=== PATIENT | female | born 1970 | race Caucasian/White ===

== ENCOUNTER 2020-09-24 14:16 | Outpatient (CLI) | payer OTHER, SELFPAY ==
--- NOTE | ~2020-09-24 | US_ITS ---
EXAMINATION: US thyroid DATE: 09/24/2020 14:44 INDICATION: Dysphagia. TECHNIQUE: Multiple ultrasound images of the thyroid were obtained. COMPARISON: CT cervical spine 01/17/2016 FINDINGS: The right thyroid lobe measures 5.9 x 2.6 x 2.2 cm. The left thyroid lobe is absent . In the inferio r right thyroid lobe, there is a 2.1 cm predominantly solid, hypoechoic, jtkxb-rmap-liyi nodule with ill-defined margin without echogenic foci (TI-RADS TR4). IMPRESSION: 1. Right thyroid nodule, stable from 01/17/2016, likely benign. Reviewed, dictated and finalized at location A. ATION OFFICER
== END 2020-09-24 14:17 | disposition home or self-care (01) ==
PROVIDERS: PCP Nurse Practitioner Family; Visit Provider Otolaryngology
DX: R13.10 Dysphagia, unspecified (principal)
CPT/HCPCS: 76536

== ENCOUNTER 2021-01-10 18:03 | Emergency (ER) | payer OTHER, SELFPAY ==
--- NOTE | 2021-01-10 18:48 | ED_ITS ---
HPI - General Adult General Chief complaint: Extremity Injury, Lower Stated complaint: Left leg complaint Time Seen by Provider: 01/10/21 18:17 Related Data Home Medications Medication Instructions Recorded Confirmed sertraline 100 mg tablet 100 mg PO DAILY 09/20/20 Allergies Allergy/AdvReac Type Severity Reaction Status Date / Time latex Allergy Unknown ITCHING Verified 09/20/20 13:53 WITH GLOVES adhesive AdvReac Unknown ITCHING Verified 09/20/20 13:53 PMFSH Family History Family History (Updated 09/20/20 @ 13:48 by Radha Cao [facility]) Mother Asthma Father Heart disease Sibling ALS (amyotrophic lateral sclerosis) Grandparent Cancer Diabetes mellitus Grandparent Diabetes mellitus Cancer Social History Social History (Updated 09/20/20 @ 13:49 by Radha Cao [facility]) Smoking status: Never smoker Second hand tobacco smoke exposure: No Alcohol intake: never Substance use: never Substance use type: does not use Medical Decision Making MDM Narrative Medical decision making narrative: Patient was not evaluated by nurse practitioner. Patient left at triage desk prior to OIL LEASE OPERATOR evaluation. Please see nursing documentation. Discharge Plan Discharge Prescriptions: No Action sertraline 100 mg tablet 100 mg PO DAILY RF: 0 Follow-up/Referrals: Steiner,Priyanka Burk APN [Primary Care Provider] -
== END 2021-01-10 18:17 | disposition left against medical advice (07) ==
PROVIDERS: Emergency Provider Nurse Practitioner Family; PCP Nurse Practitioner Family
DX: Z53.21 Procedure and treatment not carried out due to patient leaving prior to being seen by health care provider (principal)
CPT/HCPCS: 99199

== ENCOUNTER 2021-09-27 01:11 | Emergency (ER) | payer OTHER, SELFPAY ==
--- NOTE | 2021-09-27 01:32 | ED.ALLEREA ---
HPI - Allergic Reaction General Chief complaint: Allergic Reaction Stated complaint: ALLERGIC REACTION Time Seen by Provider: 09/27/21 01:32 Source: patient Mode of arrival: ambulatory Limitations: no limitations History of Present Illness HPI narrative: this is a 51-year-old female who presents with some urticarial lesions on her lower extremities and itching that started earlier this evening the patient not sure what started this allergic reaction except for using her mother's shower gel and recently started on aspirin after she has status post left knee replacement surgery. Otherwise there is no shortness of breath no audible wheezing no nausea vomiting or abdominal pain. MD complaint: allergic reaction and hives Onset (ago): hour(s) Exposure: unknown Symptoms: rash and itching Severity: moderate Treatment prior to arrival: topical medicine Related Data Home Medications Medication Instructions Recorded Confirmed sertraline 100 mg tablet 100 mg PO DAILY 09/20/20 Allergies Allergy/AdvReac Type Severity Reaction Status Date / Time latex Allergy Unknown ITCHING Verified 09/20/20 13:53 WITH GLOVES adhesive AdvReac Unknown ITCHING Verified 09/20/20 13:53 Review of Systems Review of Systems: All systems reviewed & are unremarkable except as noted in HPI and below PMFSH Past Medical History Medical History Dysphagia Family History Family History Mother Asthma Father Heart disease Sibling ALS (amyotrophic lateral sclerosis) Grandparent Cancer Diabetes mellitus Grandparent Diabetes mellitus Cancer Social History Social History Smoking status: Never smoker Second hand tobacco smoke exposure: No Alcohol intake: never Substance use: never Substance use type: does not use Exam Const: General: no acute distress Orientation/consciousness: patient oriented x3 HENMT: Head: normal to inspection Eyes: Conjunctivae: conjunctivae normal Pupils: Equal, round and reactive pupils present Neck: Neck: normal visual inspection, no lymphadenopathy and no meningeal signs Chest: Chest palpation & inspection: normal inspection of the chest Resp: Effort & Inspection: normal respiratory effort Cardio: Rate: regular rate and tachycardic GI: GI Palp: Yes Soft to palpation : General: Yes no CVA tenderness Urinary Catheter: Urinary Catheter: patent and draining Back/Spine/Pelvis: Back: no CVA tenderness Skin: General skin exam: normal color Other: Urticarial lesions are welts located on lower extremities Neuro: General: patient oriented x3, moves all extremities, no meningeal signs and no focal motor deficits Extrem: General: normal to inspection and no pedal edema Psych: Affect: normal affect Attitude: cooperative Course Course Emergency Course: patient received a dose of p.o. Benadryl and IM Depo-Medrol and which helped relieve her itching and improved her urticaria. Critical Care Time Critical Care Time Critical Care Time: No Discharge Plan Discharge Clinical Impression: Urticaria Allergic reaction Qualifiers: Encounter type: initial encounter Qualified Code(s): T78.40XA - Allergy, unspecified, initial encounter Patient Disposition: Home, Self-Care Condition: Stable Instructions: Antibiotic Form, Urticaria (ED) Additional Instructions: Take medicine as prescribed and return to nearest emergency department if symptoms of severe shortness of breath should develop. Stop aspirin and call primary care physician / orthopedic doctor if symptoms persist or worsen. Prescriptions: New prednisone 20 mg tablet 20 mg PO DAILY 5 Days Qty: 5 RF: 0 diphenhydramine HCl [Benadryl] 25 mg capsule 25 mg PO Q6H PRN (Reason: allergic reaction) Qty: 20 RF: 0 No Action sertraline 100 mg tabl
[2021-09-27 01:33] VITALS: BP 148/92; PULSE 124; RESP 22; TEMP 36.7; O2SAT 99
[2021-09-27] MEDS: diphenhydrAMINE HCl CAP 25 MG CAPSULE PO (02:08)
[2021-09-27] MEDS: methylPREDNISolone ACETATE 40 MG/ML VIAL 80 MG IM (02:11)
--- NOTE | 2021-09-27 03:00 | PC.NURSE ---
Pt reports itching resolved Hives dissipating, however Pt continues Tachy and restless. Pt states her Lt knee cont to give her pain. Pain R/T HX Lt total knee surgery. Noted dressing CDI. Butterfly steri strips in place 0 drainage or Redness. ANNY donovan and advised Pt cont Tachy HR. EKG ordered.
--- NOTE | 2021-09-27 03:49 | PC.NURSE ---
Pt reevaluated by ANNY Loco. Pt at this time after this RN Notified the ANNY Loco, obtained orders and pulled medication and fluids for pain to administer....Pt refused. Pt Advised Anny Loco and myself of the following, This is not what I came here for! I came here for hives not pain meds! Pt began getting up off stretcher and getting dressed at this time ANNY Loco advised me Pt was signing out AMA. A hospital approved AMA form was obtained filled out with the proper Identifiers and submitted with a full explination to Pt of the consequenses of signing out against medical advise. pt signed and continued her exit from the Emergency Dept.
[2021-09-27 03:54] VITALS: BP 134/72; PULSE 134; RESP 22; TEMP 36.4; O2SAT 97
== END 2021-09-27 04:00 | disposition left against medical advice (07) ==
PROVIDERS: Emergency Provider Emergency Medicine; PCP Nurse Practitioner Family
DX: L50.9 Urticaria, unspecified (principal); T78.40XA Allergy, unspecified, initial encounter
CPT/HCPCS: 96372; 99283; A9270; J1030

== ENCOUNTER 2023-02-17 23:27 | Emergency (ER) | payer OTHER, SELFPAY ==
[2023-02-17 23:32] VITALS: BP 157/100; PULSE 122; RESP 20; TEMP 37.3; O2SAT 100
[2023-02-17] MEDS: TETANUS,DIPHTHERIA,AC PERTUSSIS ADULT 0.5 ML (ADACEL) IM (23:51)
[2023-02-17] MEDS: KETOROLAC (*BKC) 60 MG/2 ML VIAL IM (23:54)
--- NOTE | 2023-02-17 23:58 | ED.WOUNDLAC ---
HPI - Wound/Laceration General Chief Complaint: Wound/Laceration Stated Complaint: Lac Source: patient Mode of arrival: ambulatory Limitations: no limitations History of Present Illness HPI narrative: this is a 52-year-old female who presents with laceration 4 distinct areas on her left upper arm S1 and 0.5cm in length 1 on her left wrist 1cm in length 1 on her thenar region 1/2cm in length and on her palm 2.5cm in length, occurred earlier this evening after she was walking around with a mole in her hand and she tripped and fell causing lacerations from broken [place] that cut into her arm and hand, otherwise no other injuries complaining of pain which he rates about a 6/10 is not up-to-date with her tetanus. Has good range of motion in all fingers with no numbness or tingling. Onset (ago): hour(s) Extremity Location: Left: arm ( laceration 1.5cm), wrist ( laceration 1.5cm) and hand ( laceration to an absent in) Place: home Patient tetanus UTD: No Context: accidental Associated symptoms: none Related Data Home Medications Medication Instructions Recorded Confirmed Cecon 500 mg BYMOUTH DAILY 09/27/21 09/27/21 Senexon-S 50 mg BYMOUTH DAILY 09/27/21 09/27/21 aspirin 325 mg BYMOUTH DAILY 09/27/21 09/27/21 Allergies Allergy/AdvReac Type Severity Reaction Status Date / Time latex Allergy Unknown ITCHING Verified 02/06/22 08:25 WITH GLOVES adhesive AdvReac Unknown ITCHING Verified 02/06/22 08:25 Review of Systems Review of Systems: All systems reviewed & are unremarkable except as noted in HPI and below PMFSH Past Medical History Medical History Dysphagia Family History Family History Mother Asthma Father Heart disease Sibling ALS (amyotrophic lateral sclerosis) Grandparent Cancer Diabetes mellitus Grandparent Diabetes mellitus Cancer Social History Social History Smoking status: Never smoker Second hand tobacco smoke exposure: No Alcohol intake: never Substance use: never Substance use type: does not use Exam Const: General: healthy appearing Nutritional Appearance: well nourished Orientation/consciousness: patient oriented x3 Limitations: no limitations Neck: Neck: normal visual inspection and no lymphadenopathy Chest: Chest palpation & inspection: normal inspection of the chest Resp: Effort & Inspection: normal respiratory effort Auscultation: clear to auscultation bilaterally Cardio: Rate: regular rate Rhythm: regular rhythm GI: GI Palp: Yes Soft to palpation Skin: Wounds: wounds noted Neuro: General: patient oriented x3 Cranial nerves: Yes Nystagmus not present Speech: normal speech Extrem: General: normal to inspection Psych: Mental Status: mental status grossly normal Affect: normal affect Course Course Emergency Course: Lacerations that were cleaned and irrigated, a bleeding and stop with some [place] and [place] done was placed on the 4 distinct laceration areas, patient was updated with her tetanus and given shot of Toradol for pain control. Currently no bleeding no numbness or tingling has good range of motion in her fingers and wrist. Wounds were without any injury to tendons or ligaments. Vital Signs Vital signs: Vital Signs Temperature 37.3 C 02/17/23 23:32 Pulse Rate 122 H 02/17/23 23:32 Respiratory Rate 20 02/17/23 23:32 Blood Pressure 157/100 H 02/17/23 23:32 Pulse Oximetry 100 02/17/23 23:32 Oxygen Delivery Room Air 02/17/23 23:32 Temperature 37.3 C 02/17/23 23:32 Pulse Rate 122 H 02/17/23 23:32 Respiratory Rate 20 02/17/23 23:32 Blood Pressure 157/100 H 02/17/23 23:32 Pulse Oximetry 100 02/17/23 23:32 Oxygen Delivery Room Air 02/17/23 23:32 Procedures Laceration Laceration 1: Date: 02/18/23 Time: 00:03 Sit
[2023-02-18 00:13] VITALS: BP 140/105; PULSE 103; RESP 20; TEMP 36.9; O2SAT 97
== END 2023-02-18 00:15 | disposition home or self-care (01) ==
PROVIDERS: Emergency Provider Emergency Medicine; PCP Nurse Practitioner Family
DX: S41.112A Laceration without foreign body of left upper arm, initial encounter (principal); Z23 Encounter for immunization; W01.0XXA Fall on same level from slipping, tripping and stumbling without subsequent striking against object, initial encounter; Y92.009 Unspecified place in unspecified non-institutional (private) residence as the place of occurrence of the external cause
CPT/HCPCS: 12002; 90471; 90715; 96372; 99283; J1885

== ENCOUNTER 2024-02-29 22:52 | Emergency (ER) | payer OTHER, SELFPAY ==
--- NOTE | ~2024-02-29 | CT_ITS ---
EXAMINATION: CT abdomen pelvis wo con DATE: 02/29/2024 23:49 INDICATION: LEFT FLANK PAIN/HX OF STONES TECHNIQUE: Computed tomography (CT) of the abdomen and pelvis was performed without intravenous contr ast. Automated exposure control and iterative reconstruction technique were employed. The dose-length product was 523.86 mGy-cm. COMPARISON: None. FINDINGS: Lower thorax: Lingular and bibasilar scarring. Mild cardiomegaly. Coronary and aortic valve calcifica tion. Liver: Normal. Biliary/Gallbladder: Gallbladder is normal. No bile duct dilation. Pancreas: No mass or duct dilation. Spleen: Normal. Adrenals:No mass. Kidneys: No suspicious mass, obstructing stone, or hydronephrosis. Punctate nonobstructing left upper pole calcification. GI tract: Sigmoid wall thickening in the pelvis with inflamed adjacent diverticula. Amorphous thicken ing of the adjacent peritoneal reflection along the upper left pelvic sidewall, extending superiorly roughly to the level of the iliac bifurcation. Several adjacent gas bubbles may represent gas trapped within diverticula or small bubbles of local extraluminal gas. Prior gastric surgery. No small or la rge bowel dilation. Normal appendix. Mesentery/Peritoneum: No ascites, mass, or free air. Retroperitoneum: No mass. Pelvis: Absent uterus. Mostly empty urinary bladder with mild wall thickening. Small volume free pelv ic fluid, measuring more dense than simple fluid. Soft Tissues: Soft tissues and body wall unremarkable. Bones: No acute osseous finding. Uncomplicated appearing lumbar fusion hardware. IMPRESSION: Acute complicated sigmoid diverticulitis. Inflammatory changes along the adjacent left lower abdominal and pelvic peritoneal reflection versus phlegmon. Developing abscess not excluded. Hyperdense free pelvic fluid, as can be seen with infected fluid or bowel content. Multiple adjacent gas collections may represent localized microperforation versus gas trapped within adjacent diverticuli. Reviewed, dictated and finalized at location K. IMPRESSION: Acute complicated sigmoid diverticulitis. Inflammatory changes along the adjacent left lower abdominal and pelvic periton eal reflection versus phlegmon. Developing abscess not excluded. Hyperdense free pelvic fluid, as can be seen with infected fluid or bowel fatimah nt. Multiple adjacent gas collections may represent localized microperforation vers us gas trapped within adjacent diverticuli.
[2024-02-29 22:53] VITALS: BP 148/78; PULSE 124; RESP 18; TEMP 37.7; O2SAT 97
--- NOTE | 2024-02-29 22:57 | ED.ABDPAIN ---
HPI - Abdominal Pain General Chief Complaint: Abdominal Pain Stated Complaint: urogenital female Time Seen by Provider: 02/29/24 22:52 Source: patient Mode of arrival: ambulatory Limitations: no limitations History of Present Illness MD elicited complaint: abdominal pain Pertinent past history: kidney stones Onset (ago): hour(s) (this morning) Pain Consistency: constant Location: LLQ Severity: severe Radiation: none Exacerbating factors: nothing Relieving factors: nothing Associated symptoms: denies other symptoms Related Data Patient : No Home Medications Medication Instructions Recorded Confirmed fluoxetine 10 mg capsule 10 mg PO DAILY 02/29/24 02/29/24 hydrochlorothiazide 25 mg tablet 25 mg PO DAILY 02/29/24 02/29/24 Allergies Allergy/AdvReac Type Severity Reaction Status Date / Time latex Allergy Unknown ITCHING Verified 02/06/22 08:25 WITH GLOVES adhesive AdvReac Unknown ITCHING Verified 02/06/22 08:25 Review of Systems Review of Systems: All systems reviewed & are unremarkable except as noted in HPI and below Constitutional: Constitutional: Reports as per HPI, Denies chills and Denies fever(s) Eyes: Eyes: Reports as per HPI ENT: Reports system reviewed and no additional complaints, except as documented Cardiovascular: Cardiovascular: Reports as per HPI and Denies chest pain Respiratory: Respiratory: Reports as per HPI and Denies dyspnea Gastrointestinal: Gastrointestinal: Reports as per HPI, Reports abdominal pain, Denies constipation, Denies diarrhea, Denies nausea and Denies vomiting Genitourinary: Genitourinary: Reports no additional female genitourinary complaints, Denies nocturia and Denies dysuria Musculoskeletal: Musculoskeletal: Reports no additional musculoskeletal complaints Integumentary/Breasts: Skin/Breast: Reports system reviewed and no additional complaints, except as docu Neurologic: Reports system reviewed and no additional complaints, except as documented Psychiatric: Psychiatric: Reports no additional psychiatric complaints Endocrine: Endocrine: Reports no additional endocrine complaints Hematologic/Lymphatic: Hematologic/Lymphatic: Reports no additional hematologic/lymphatic complaints Allergic/Immunologic: Allergic/Immunologic: Reports no additional allergic/immunologic complaints [facility] Past Medical History Medical History Dysphagia Family History Family History Mother Asthma Father Heart disease Sibling ALS (amyotrophic lateral sclerosis) Grandparent Cancer Diabetes mellitus Grandparent Diabetes mellitus Cancer Social History Social History Smoking status: Never smoker Second hand tobacco smoke exposure: No Alcohol intake: never Substance use: never Substance use type: does not use Exam Const: Nutritional Appearance: well nourished Orientation/consciousness: patient oriented x3 Limitations: no limitations Other: moderate distress HENMT: Head: normal to inspection Ears: external ears normal Face/Nose/Sinus: Normal external nose present Face and sinus: normal facial exam Eyes: Conjunctivae: conjunctivae normal Pupils: Equal, round and reactive pupils present EOM: EOMs intact bilaterally Direct Ophthalmoscopy: no photophobia Neck: Neck: normal visual inspection Chest: Chest palpation & inspection: normal inspection of the chest Resp: Effort & Inspection: normal respiratory effort Auscultation: clear to auscultation bilaterally Cardio: Rate: regular rate Rhythm: regular rhythm GI: Inspection: non-distended GI Palp: Yes Soft to palpation and Yes Tenderness to palpation present (GI) (LLQ) Back/Spine/Pelvis: Back: no CVA tenderness Skin: General skin exam: normal color Rashes: no rashes Wounds: no wounds Neuro: General: patient oriente
[2024-02-29] MEDS: KETOROLAC 30 MG/ML VIAL (*BKC) IV PUSH (23:09)
[2024-02-29] MEDS: ONDANSETRON INJ 4 MG/2 ML VIAL IV PUSH (23:09)
[2024-02-29] MEDS: SODIUM CHLORIDE 0.9% IV 1,000 ML 999 ML IV CONT (23:10)
[2024-02-29 23:20] LABS: Appearance Urine Clear (Clear); Bilirubin Urine Negative (Negative); Blood Urine Negative (Negative); Color Urine Yellow (Yellow); Glucose Urine UA Negative (Negative); Ketones Urine 1+ (Negative); Leukocyte Esterase Ur Negative (Negative); Nitrate Urine Negative (Negative); Protein Urine Negative (Negative); pH Urine 6.5 (5.0-8.0)
[2024-02-29 23:21] LABS: Add Urine Microscopic? NO
[2024-02-29 23:59] VITALS: BP 132/84; PULSE 112; RESP 18; O2SAT 95
[2024-03-01] MEDS: HYDROmorphone HCL INJ (*CRX) 2 MG/ML VIAL 1 MG IV PUSH ×2 (00:34→01:39)
--- NOTE | 2024-03-01 00:40 | PC.NURSE ---
ERp Dr Fox discussed CT results w/ pt and need for transfer. Pt wants to go to [facility], [facility] at this time.
[2024-03-01 00:54] LABS: Basophils Absolute Auto 0.05 K/mm3 (0.00-0.10); Basophils Percent Auto 0.4 % (0.0-1.0); Eosinophils Absolute Auto 0.05 K/mm3 (0.02-0.50); Eosinophils Percent Auto 0.4 % (1.0-6.0); Hematocrit 37.3 % (35.0-49.0); Hemoglobin 11.9 g/dL (12.0-15.0); Immature Granulocyte Absolute 0.17 K/mm3 (0.00-0.00); Immature Granulocyte Percent A 1.2 % (0.0-0.0); Lymphocytes Absolute Auto 1.41 K/mm3 (1.10-4.50); Lymphocytes Percent Auto 10.2 % (18.0-42.0); Mean Corpuscular HGB Conc 31.9 g/dL (32-36); Mean Corpuscular Hemoglobin 28.2 pg (27.0-31.0); Mean Corpuscular Volume 88.4 fL (78.0-102.0); Mean Platelet Volume 9.9 fl (9.2-11.8); Monocytes Absolute Auto 1.05 K/mm3 (0.10-0.90); Monocytes Percent Auto 7.6 % (2.0-11.0); Neutrophils Absolute Auto 11.03 K/mm3 (1.70-7.20); Neutrophils Percent Auto 80.2 % (50.0-70.0); Platelet Count Result 249 K/mm3 (150-420); Red Blood Count 4.22 M/mm3 (4.20-5.40); Red Cell Distribution Width 13.3 % (11.6-14.4); White Blood Count 13.8 K/mm3 (4.8-10.8)
[2024-03-01 00:58] LABS: Alanine Aminotransferase 15 U/L (14-59); Albumin Level 2.9 g/dL (3.4-5.0); Alkaline Phosphatase 118 U/L (46-116); Anion Gap 7 mmol/L (4-12); Aspartate Amino Transferase 15 U/L (15-37); Bilirubin,Total 0.9 mg/dL (0.00-1.00); Blood Urea Nitrogen 14 mg/dL (7-18); Calcium 7.7 mg/dL (8.5-10.1); Carbon Dioxide 24 mmol/L (21-32); Chloride 106 mmol/L (98-108); Estimated CRCL calculation 96 ml/min; Estimated Glomerular Filt Rate > 60; Glucose 101 mg/dL (70-99); Osmolality Calculated 284 mOsm/kg (285-295); Potassium 3.9 mmol/L (3.5-5.1); Sodium 137 mmol/L (136-145); Total Protein 6.1 g/dL (6.4-8.2)
[2024-03-01 01:01] LABS: Lactic Acid Reflex 0.5 mmol/L (0.4-2.0)
[2024-03-01] MEDS: PIPERACILLN/TAZ 3.375GM/NS50ML 3.375 GM/50 ML BAG IVPB (01:02)
[2024-03-01 01:03] VITALS: BP 114/70; PULSE 105; RESP 16; O2SAT 93
--- NOTE | 2024-03-01 01:14 | PC.NURSE ---
Pt sleeping, resting more comfortable, VSS, IV antibx infusing as per order.
[2024-03-01] MEDS: SODIUM CHLORIDE 0.9% IV 1,000 ML 125 ML IV CONT (02:02)
[2024-03-01 02:05] VITALS: BP 104/62; PULSE 98; RESP 16; TEMP 36.5; O2SAT 94
--- NOTE | 2024-03-01 02:06 | PC.NURSE ---
POC for transfer to [place] discussed c pt. Paperwork signed for transfer, pt resting comfortably, more relaxed and pain free since given pain med. VSS, awaiting call back for bed assignment.
--- NOTE | 2024-03-01 02:09 | PC.NURSE ---
Call back from [facility] and bed assignment received. Pt will go to Rm [id number].
--- NOTE | 2024-03-01 02:18 | PC.NURSE ---
Report given to Hui Mcgill. Call paged for transfer.
[2024-03-01 02:34] VITALS: BP 108/68; PULSE 100; RESP 16; TEMP 36.6; O2SAT 95
--- NOTE | 2024-03-07 13:15 | PC.NURSE ---
FINAL BLOOD CULTURE RESULTS X2: NO GROWTH AFTER 5 DAYS
== END 2024-03-01 02:34 | disposition short-term general hospital (02) ==
PROVIDERS: Emergency Provider Emergency Medicine; PCP Nurse Practitioner Family
DX: Z79.899 Other long term (current) drug therapy (principal); K57.92 Diverticulitis of intestine, part unspecified, without perforation or abscess without bleeding; K63.1 Perforation of intestine (nontraumatic); K65.1 Peritoneal abscess
CPT/HCPCS: 36415; 74176; 80053; 81003; 83605; 85025; 87040; 96361; 96365; 96374; 96375; 96376; 99285; J1170; J1885; J2405; J2543; J7030

== ENCOUNTER 2024-03-01 03:47 | Inpatient (IN) | payer OTHER, SELFPAY ==
[2024-03-01] VITALS (7 sets, daily range): BP systolic 100–125; BP diastolic 53–70; PULSE 60–100; RESP 16–20; TEMP 36.1–37.2; O2SAT 93–100; BMI 38.2
--- NOTE | 2024-03-01 03:16 | ADMGEN ---
This patient, Nellie Gr, was admitted to 3 Med Surg Room 309-01 @[id number] arriving via EMS. Patient/family oriented to hospital policies and general routines including ID bracelet, bed and alarms, visiting hours, pain management, procedures, bathroom and other care routines, personal items, smoking policy, room service/diet, and visiting hours. Information on how to activate the Rapid Response Team has been discussed. Patient/Family are encouraged to report perceived risks to care and to ask questions if they do not understand what they are told or what they should do. Report received from JOHN Joshua from [facility] ED.
[2024-03-01] MEDS: HYDROmorphone HCL INJ (*CRX) 1 MG/ML SYR IV PUSH ×4 (04:21→21:10)
[2024-03-01] MEDS: DEXTROSE 5%/0.45% SOD CHL 1,000 ML 100 ML IV CONT ×2 (04:23→16:22)
[2024-03-01 05:57] LABS: Basophils Absolute Auto 0.1 K/mm3 (0.0-0.1); Basophils Percent Auto 0.4 % (0.2-1.2); Eosinophils Absolute Auto 0.1 K/mm3 (0-0.3); Eosinophils Percent Auto 1.1 % (0-4.4); Hematocrit 36.3 % (37.0-47.0); Hemoglobin 11.3 g/dL (12.0-15.0); Immature Granulocyte Absolute 0.05 K/mm3 (0.00-0.031); Immature Granulocyte Percent A 0.4 % (0-0.5); Lymphocytes Absolute Auto 1.65 K/mm3 (0.9-3.2); Lymphocytes Percent Auto 13.8 % (18.3-44.2); Mean Corpuscular HGB Conc 31.1 g/dl (32-36); Mean Corpuscular Hemoglobin 28.5 pg (26-34); Mean Corpuscular Volume 91.4 fl (80-100); Mean Platelet Volume 9.9 fl (7.4-10.4); Monocytes Percent Auto 8.4 % (2.6-8.5); Neutrophils Absolute Auto 9.1 K/mm3 (1.3-6.7); Neutrophils Percent Auto 75.9 % (45.5-73.1); Platelet Count Result 237 k/mm3 (150-375); Red Blood Count 3.97 M/mm3 (4.2-5.4); Red Cell Distribution Width 13.5 % (11.5-14.5)
[2024-03-01 06:09] LABS: INR 1.2; Prothrombin Time 16.1 Seconds (11.1-14.7)
[2024-03-01 06:10] LABS: Partial Thromboplastin Time 30.5 Seconds (22.3-36.8)
[2024-03-01 06:20] LABS: Anion Gap 4 mmol/L (4-12); Blood Urea Nitrogen 14 mg/dL (7-17); Calcium 7.4 mg/dL (8.4-10.2); Carbon Dioxide 25 mmol/L (22-30); Chloride 108 mmol/L (98-107); Estimated CRCL calculation 93 ml/min; Estimated Glomerular Filt Rate > 60; Glucose 101 mg/dL (65-110); Magnesium 1.8 mg/dL (1.6-2.3); Phosphorus 3.5 mg/dL (2.5-4.5); Potassium 3.8 mmol/L (3.4-5.0); Sodium 137 mmol/L (137-145)
[2024-03-01] MEDS: PIPERACILLN/TAZ 3.375GM/NS50ML 3.375 GM/50 ML BAG IVPB ×3 (06:23→17:18)
[2024-03-01 06:24] LABS: Lactic Acid Reflex < 0.5 mmol/L (0.7-2.0)
--- NOTE | 2024-03-01 07:21 | PM.IMHP ---
H&P: HPI History of Present Illness Date/Time: 03/01/24 07:21 Chief Complaint: LLQ pain Narrative: 53 year old female with past medical history of hyperlipidemia, kidney stones, anxiety/depression, methamphetamine use (last used 2013) presents to the hospital for abdominal pain after being transferred from [facility]. Patient states she woke up yesterday morning with severe nonradiating left lower quadrant pain. She originally thought this was a kidney stone and continued throughout her day, however the pain continued to worsen. She then started having loose bowel movements and was unable to tolerate any oral intake. She denies fevers, nausea/vomiting. The pain continued to increase reaching a 10/10 which lead patient to seek medical treatment at [facility]. While at [facility] patient was diagnosed with diverticulitis as seen on imaging. She states the provider there was concerned about a bleed and transferred her to [place] at that time. She denies hematochezia and melena. ED workup: CBC with leukocytosis 13.8 and mild anemia H/H 11.9/37.3. Chemistry unremarkable. Lactic 0.5. Urinalysis without concern for infection. Blood culture obtained. Abdomen/pelvis CT reveals acute complicated sigmoid diverticulitis, developing abscess not excluded. Hyperdense free pelvic fluid, as can be seen with infected fluid or bowel content. Multiple adjacent gas collections may represent localized microperforation versus gas trapped within adjacent diverticuli. Patient started on analgesics and IV Zosyn. Surgery consulted. Review of Systems Review of Systems: All systems reviewed & are unremarkable except as noted in HPI and below PMFSH Past Medical History Medical History (Updated 03/01/24 @ 14:06 by Ruba Choi PA-C) Anxiety Depression Dysphagia Hyperlipidemia Methamphetamine use Surgical History Surgical History (Updated 03/01/24 @ 14:10 by Ruba Choi PA-C) H/O gastric bypass November 2011 History of knee replacement 2021 with revision in 2022 History of lumpectomy 1988. Per patient was benign. History of spinal fusion 2018. L4/5, S1 History of tubal ligation 1993 Family History Family History (Updated 03/01/24 @ 03:33 by Briseyda Heller RN) Mother Asthma Heart disease Father Heart disease Sibling ALS (amyotrophic lateral sclerosis) Grandparent Diabetes mellitus Cancer Grandparent Diabetes mellitus Cancer Grandparent Heart disease Social History Social History (Updated 03/01/24 @ 14:13 by Ruba Choi PA-C) Social History: Lives with , son and sons girl friend One dog in the home Smoking status: Never smoker Second hand tobacco smoke exposure: No Alcohol intake: current Alcohol use details: Social drinking every few years Substance use: former Substance use type: does not use and methamphetamine Other substance usage details: Patient reports smoking methamphetamine 3 times. Last use: 2013 Do You Feel Safe in your Home?: Yes Lack of Transportation: YES Lack of Food: Never True Current Housing: I Have Housing Concerned About Future Housing: No Difficulty Paying Gas/Electric Bills: YES Difficulty Paying for Meds: No Currently Unemployed: No Education: Grade School Difficulty w/ Childcare or Family Care: No Living arrangements: with family Additional living arrangements comments: Lives with , son and sons girlfriend Spiritual care concerns: No Meds Home Medications and Allergies Home Medications Medication Instructions Recorded Confirmed Type fluoxetine 10 mg capsule 10 mg PO DAILY 02/29/24 03/01/24 History hydrochlorothiazide 25 mg tablet 25 mg PO DAILY 02/29/24 03/01/24 History calcium citrate 500 mg (2,376 mg) 500 mg PO TID 03/01/24 03/01/24 History effervescent tablet cyanocobalamin (B12)-cobamamide 1 santa sublingual MONTHLY 03/01/24 03/01/24 History 5,000 mcg-100 mcg sublingual lozenge (
[2024-03-01] MEDS: ENOXAPARIN 40 MG/0.4 ML SYRINGE SUB-Q (09:06)
[2024-03-01] MEDS: ONDANSETRON INJ 4 MG/2 ML VIAL IV PUSH ×2 (09:11→21:10)
[2024-03-01] MEDS: ACETAMINOPHEN 500 MG TABLET PO (16:18)
[2024-03-01] MEDS: CALCIUM CITRATE 315 MG/VITAMIN D 6.25 MCG (250 UNITS) TAB 1 TABLET PO (16:18)
--- NOTE | 2024-03-01 17:59 | WPDCN ---
Assessment and Plan Assessment and plan (1) Diverticulitis: Code(s): K57.92 - Diverticulitis of intestine, part unspecified, without perforation or abscess without bleeding Status: Acute Assessment and Plan: Patient appears to have had her 1st episode of sigmoid diverticulitis. Her clinical presentation is more suggestive of mild sigmoid diverticulitis rather than the severe complicated diverticulitis as was suggested by the reading on the CT scan by the radiologist. At this point I would treat her more according to her clinical status than by her CT scan. I think she can have limited clear liquids for now and keep her on IV antibiotics to include this Zosyn. Serial abdominal exams and supportive management. No obvious need for operative management. I did discuss with her that if she did need to have emergent surgical management that placement of a diverting colostomy resection of the sigmoid colon would likely be the outcome. She agrees with the treatment plan. Surgery will follow. HPI Data of Consult Date/Time: 03/01/24 17:59 Requesting Physician: Ruba Choi PA-C Primary Care Provider: Priyanka Steiner, [employer] Consult Narrative Reason for consult: Acute sigmoid diverticulitis Narrative: Nellie Gr is a 53 year old female who was admitted to [facility] after transfer from outside emergency room facility with 1st episode lower abdominal pain which was worse on left lower quadrant. No blood per rectum. CT scan abdomen pelvis showed thickening of the sigmoid colon possible developing pelvic abscess. No obvious free air or obvious perforation was noted. White blood cell count was mildly elevated at 13,000 thousand. She was hemodynamically stable. Since she has been admitted to the hospital and started on IV antibiotics to include Zosyn her pain is a little bit [place] [address] this morning. Her abdomen is relatively benign. Patient had a prior gastric bypass surgery over 10 years ago when she lost over 200lb. She states she had a colonoscopy last year which did not show any polyps. Review of Systems Review of Systems: The remainder of the review of systems to include constitutional, HEENT, cardiovascular, respiratory, GI, , integumentary, musculoskeletal, endocrine, immunologic, hematologic, psychiatric, and neurologic are all negative except for which is mentioned above in the HPI. [facility] Past Medical History Medical History Anxiety Depression Dysphagia Hyperlipidemia Methamphetamine use Surgical History Surgical History H/O gastric bypass November 2011 History of knee replacement 2021 with revision in 2022 History of lumpectomy 1988. Per patient was benign. History of spinal fusion 2018. L4/5, S1 History of tubal ligation 1993 Family History Family History Mother Asthma Heart disease Father Heart disease Sibling ALS (amyotrophic lateral sclerosis) Grandparent Diabetes mellitus Cancer Grandparent Diabetes mellitus Cancer Grandparent Heart disease Social History Social History Social History: Lives with , son and sons girl friend One dog in the home Smoking status: Never smoker Second hand tobacco smoke exposure: No Alcohol intake: current Alcohol use details: Social drinking every few years Substance use: former Substance use type: does not use and methamphetamine Other substance usage details: Patient reports smoking methamphetamine 3 times. Last use: 2013 Do You Feel Safe in your Home?: Yes Lack of Transportation: YES Lack of Food: Never True Current Housing: I Have Housing Concerned About Future Housing: No Difficulty Paying Gas/Electric Bills: YES Diff
[2024-03-02] VITALS (7 sets, daily range): BP systolic 105–137; BP diastolic 62–89; PULSE 83–105; RESP 16–20; TEMP 36.4–36.7; O2SAT 98–100
[2024-03-02] MEDS: PIPERACILLN/TAZ 3.375GM/NS50ML 3.375 GM/50 ML BAG IVPB ×5 (00:30→23:34)
[2024-03-02] MEDS: DEXTROSE 5%/0.45% SOD CHL 1,000 ML 100 ML IV CONT (00:58)
[2024-03-02] MEDS: ACETAMINOPHEN 500 MG TABLET PO (05:53)
[2024-03-02 06:32] LABS: Basophils Percent Auto 0.5 % (0.2-1.2); Eosinophils Absolute Auto 0.2 K/mm3 (0-0.3); Eosinophils Percent Auto 2.2 % (0-4.4); Hematocrit 36.8 % (37.0-47.0); Hemoglobin 11.3 g/dL (12.0-15.0); Immature Granulocyte Absolute 0.05 K/mm3 (0.00-0.031); Immature Granulocyte Percent A 0.6 % (0-0.5); Lymphocytes Absolute Auto 1.73 K/mm3 (0.9-3.2); Lymphocytes Percent Auto 19.7 % (18.3-44.2); Mean Corpuscular HGB Conc 30.7 g/dl (32-36); Mean Corpuscular Hemoglobin 28.4 pg (26-34); Mean Corpuscular Volume 92.5 fl (80-100); Mean Platelet Volume 10.2 fl (7.4-10.4); Monocytes Absolute Auto 0.6 K/mm3 (0.1-0.6); Monocytes Percent Auto 7.3 % (2.6-8.5); Neutrophils Absolute Auto 6.1 K/mm3 (1.3-6.7); Neutrophils Percent Auto 69.7 % (45.5-73.1); Platelet Count Result 233 k/mm3 (150-375); Red Blood Count 3.98 M/mm3 (4.2-5.4); Red Cell Distribution Width 13.5 % (11.5-14.5); White Blood Count 8.8 K/mm3 (4.5-10.0)
[2024-03-02 06:43] LABS: Anion Gap 5 mmol/L (4-12); Blood Urea Nitrogen 10 mg/dL (7-17); Calcium 8.2 mg/dL (8.4-10.2); Carbon Dioxide 25 mmol/L (22-30); Chloride 105 mmol/L (98-107); Estimated CRCL calculation 82 ml/min; Estimated Glomerular Filt Rate > 60; Glucose 80 mg/dL (65-110); Potassium 3.9 mmol/L (3.4-5.0); Sodium 135 mmol/L (137-145)
[2024-03-02] MEDS: FERROUS SULFATE DRIED 142 MG TABCR PO (07:56)
[2024-03-02] MEDS: ENOXAPARIN 40 MG/0.4 ML SYRINGE SUB-Q (07:59)
[2024-03-02] MEDS: FLUoxetine HCL 10 MG CAPSULE PO (07:59)
[2024-03-02] MEDS: hydroCHLOROthiazide 25 MG TABLET PO (07:59)
[2024-03-02] MEDS: CALCIUM CITRATE 315 MG/VITAMIN D 6.25 MCG (250 UNITS) TAB 1 TABLET PO ×3 (07:59→16:50)
[2024-03-02] MEDS: MULTIVITAMINS THERAPEUTIC TAB (*BKC) 1 TABLET PO (07:59)
[2024-03-02] MEDS: PANTOPRAZOLE SODIUM IV 40 MG VIAL IV PUSH ×2 (08:00→21:12)
[2024-03-02] MEDS: KETOROLAC 30 MG/ML VIAL (*BKC) IV PUSH (09:25)
--- NOTE | 2024-03-02 12:15 | WPDPN ---
Progress Note: A&P Assessment and Plan (1) Diverticulitis large intestine: Code(s): K57.32 - Diverticulitis of large intestine without perforation or abscess without bleeding Status: Acute Assessment and Plan: Patient appears to have uncomplicated sigmoid diverticulitis which has improved with non operative management with bowel rest and IV antibiotics. Her abdominal exam today is benign. Skin is normalized. We will go ahead advanced to a low-fiber diet today. Continue IV antibiotics for today and if she is doing well tomorrow the okay with discharge from the hospital on a low-fiber diet and oral antibiotics for another 7 to 10 days. Since this was her 1st episode of diverticulitis really no complicating factors I would not recommend an elective sigmoid colectomy and that she had further issues with diverticulitis in the future. She had a colonoscopy last year which was normal without any polyps or any pathology. I do not think she needs another colonoscopy so soon after her last one 1 year ago. Subjective Date/time seen: 03/02/24 12:15 Interval history: Denies having any left lower quadrant abdominal pain. White blood count is now normalized. She tolerated some liquids yesterday without difficulty. Exam GI: Other: Abdomen is soft and nondistended. Minimal. Patient around for quadrant. No guarding. Exam is pretty benign. Objective Data Vital Signs Vital Signs: Vital Signs - 24 hr 03/01/24 16:00 03/01/24 20:00 03/01/24 21:00 Temperature 37.2 C 36.9 C Pulse Rate 100 98 Respiratory Rate 20 18 Blood Pressure 110/66 125/70 Pulse Oximetry 100 100 Oxygen Delivery Room Air 03/02/24 00:00 03/02/24 04:00 03/02/24 08:00 Temperature 36.5 C 36.6 C 36.5 C Pulse Rate 88 100 97 Respiratory Rate 16 18 20 Blood Pressure 113/64 137/89 128/76 Pulse Oximetry 98 100 100 Oxygen Delivery 03/02/24 11:47 Temperature 36.6 C Pulse Rate 87 Respiratory Rate 18 Blood Pressure 105/62 Pulse Oximetry 100 Oxygen Delivery Intake/Output Intake/Output: Intake & Output 02/28/24 02/29/24 03/01/24 03/02/24 23:59 23:59 23:59 23:59 Intake Total 2065 124 Output Total 0 Balance 2065 124 Meds/Results Medications: Active Medications Generic Name Dose Route Start Last Admin Trade Name Craigq PRN Reason Stop Dose Admin Acetaminophen 500 mg 03/01/24 07:33 03/02/24 05:53 Acetaminophen 500 Mg Tablet PO 500 mg Q6H PRN Administration Mild Pain (1-3) or Fever Calcium Citrate 1 tablet 03/01/24 17:00 03/02/24 12:10 Calcium Citrate 315 Mg/Vitamin D 6.25 Mcg (250 Units) Tab PO 1 tablet TID MALINDA Administration Enoxaparin Sodium 40 mg 03/01/24 09:00 03/02/24 07:59 Enoxaparin 40 Mg/0.4 Ml Syringe SUB-Q 40 mg DAILY MALINDA Administration Ferrous Sulfate 142 mg 03/02/24 08:00 03/02/24 07:56 Ferrous Sulfate Dried 142 Mg Tabcr PO 142 mg DAILY@0800 MALINDA Administration Fluoxetine HCl 10 mg 03/02/24 09:00 03/02/24 07:59 Fluoxetine Hcl 10 Mg Capsule PO 10 mg DAILY MALINDA Administration Hydrochlorothiazide 25 mg 03/02/24 09:00 03/02/24 07:59 Hydrochlorothiazide 25 Mg Tablet PO 25 mg DAILY MALINDA Administration Hydromorphone HCl 1 mg 03/01/24 03:49 03/01/24 21:10 Hydromorphone Hcl Inj (*Crx) 1 Mg/Ml Syr IV PUSH 1 mg Q3H PRN Administration Pain Rated 7-10 Piperacillin/Tazobactam/Dextrose 3.375 gm in 50 mls @ 100 mls/hr 03/01/24 06:00 03/02/24 11:43 Zosyn 3.375 Gm/Ns 50 Ml IVPB Infused Q6HR MALINDA Infusion Multivitamins Therapeutic 1 tablet 03/02/24 09:00 03/02/24 07:59 Multivitamins Therapeutic Tab (*Bkc) PO 1 tablet DAILY MALINDA Administration Ondansetron HCl 4 mg 03/01/24 03:50 03/01/24 21:10 Ondansetron Inj 4 Mg/2 Ml Vial IV PUSH 4 mg Q6H PRN Administration Nausea And Vomiting Pantoprazole Sodium 40 mg 03/02/24 09:00 03/02/24 08:00 Pantoprazole Sodium Iv 40 Mg Vial IV PUSH 40 mg
--- NOTE | 2024-03-02 12:43 | PM.IMPN ---
Progress Note: A&P Assessment and Plan (1) Diverticulitis large intestine: Code(s): K57.32 - Diverticulitis of large intestine without perforation or abscess without bleeding Status: Acute (2) Depression: Code(s): F32.A - Depression, unspecified Status: Acute Plan Acute diverticulitis Blood cultures NGTD Abdominal CT showed sigmoid diverticulitis with inflammatory changes Surgery consulted IV Zosyn Pain control Antiemetics PPI Advance diet to low fiber as tolerated Normal WBC today Educated on diet changes HX depression: Resume patient's Fluoxetine Code status: Full code per patient DVT prophylaxis: Lovenox Stress ulcer prophylaxis: Protonix 40 daily PT/OT notes: Ambulatory Disposition: Patient was admitted to the medical-surgical unit with acute diverticulitis will continue with IV antibiotic therapy and advance patient to a low-fiber diet as tolerated. If patient tolerates diet well can likely discharge in the a.m. Time Spent With Patient Time with patient: 15 - 25 minutes Subjective Date/time seen: 03/02/24 12:43 Interval history: Admission: 53 year old female with past medical history of hyperlipidemia, kidney stones, anxiety/depression, methamphetamine use (last used 2013) presents to the hospital for abdominal pain after being transferred from [place] ER. Patient states she woke up yesterday morning with severe nonradiating left lower quadrant pain. She originally thought this was a kidney stone and continued throughout her day, however the pain continued to worsen. She then started having loose bowel movements and was unable to tolerate any oral intake. She denies fevers, nausea/vomiting. The pain continued to increase reaching a 10/10 which lead patient to seek medical treatment at [place] ED. While at [place] patient was diagnosed with diverticulitis as seen on imaging. She states the provider there was concerned about a bleed and transferred her to [place] at that time. She denies hematochezia and melena. ED workup: CBC with leukocytosis 13.8 and mild anemia H/H 11.9/37.3. Chemistry unremarkable. Lactic 0.5. Urinalysis without concern for infection. Blood culture obtained. Abdomen/pelvis CT reveals acute complicated sigmoid diverticulitis, developing abscess not excluded. Hyperdense free pelvic fluid, as can be seen with infected fluid or bowel content. Multiple adjacent gas collections may represent localized microperforation versus gas trapped within adjacent diverticuli. Patient started on analgesics and IV Zosyn. Surgery consulted. 03/02/2024: Patient reports feeling better today tolerating oral intake physical exam was benign and WBC down to 8.8 educated patient food restrictions for diverticulitis. Will transition patient to low-fiber diet if able to tolerate can likely discharge home in the a.m. Review of Systems Review of Systems: All systems reviewed & are unremarkable except as noted in HPI and below Exam Narrative: Physical Exam: GENERAL: Alert and oriented x 3. No acute distress. EYES: EOMI. No scleral icterus. PERRLA. HEENT: Moist mucous membranes. LUNGS: Clear to auscultation bilaterally. No accessory muscle use. CARDIOVASCULAR: Regular rate and rhythm. No murmur. No JVD. S1-S2 ABDOMEN: Soft, non tenderness and non-distended. No palpable masses. EXTREMITIES: No edema. Non-tender SKIN: No rashes or lesions. Skin warm, dry. NEUROLOGIC: No focal neurological deficits. CN II-XII grossly intact PSYCHIATRIC: Appropriate mood and affect. Good judgement and insight. No visual or auditory hallucinations. No suicidal or homicidal ideation. Objective Data Vital Signs Vital Signs: Vital Signs - 24 hr 03/01/24 16:00 03/01/24 20:00 03/01/24 21:00 Temperature 98.9 F 98.4 F Pulse Rate 100 98 Respiratory Rate 20 18 Blood Pressure 110/66 125/70 Pulse Oximetry 100 100 Oxygen Delivery Room Air 03/02/24 00:00
[2024-03-03 04:00] VITALS: BP 131/74; PULSE 91; RESP 16; TEMP 36.6; O2SAT 98
[2024-03-03] MEDS: PIPERACILLN/TAZ 3.375GM/NS50ML 3.375 GM/50 ML BAG IVPB (05:25)
[2024-03-03] MEDS: ACETAMINOPHEN 500 MG TABLET PO ×2 (05:29→08:20)
[2024-03-03 06:30] LABS: Hematocrit 36.8 % (37.0-47.0); Hemoglobin 11.6 g/dL (12.0-15.0); Mean Corpuscular HGB Conc 31.5 g/dl (32-36); Mean Corpuscular Hemoglobin 28.4 pg (26-34); Mean Platelet Volume 10.3 fl (7.4-10.4); Platelet Count Result 240 k/mm3 (150-375); Red Blood Count 4.09 M/mm3 (4.2-5.4); Red Cell Distribution Width 13.2 % (11.5-14.5); White Blood Count 6.2 K/mm3 (4.5-10.0)
[2024-03-03 06:41] LABS: Alanine Aminotransferase 20 U/L (6-35); Albumin Level 3.1 g/dL (3.5-5.1); Alkaline Phosphatase 132 U/L (38-126); Anion Gap 6 mmol/L (4-12); Aspartate Amino Transferase 36 U/L (14-36); Bilirubin,Total 0.7 mg/dL (0.2-1.3); Blood Urea Nitrogen 10 mg/dL (7-17); Calcium 8.4 mg/dL (8.4-10.2); Carbon Dioxide 28 mmol/L (22-30); Chloride 104 mmol/L (98-107); Estimated CRCL calculation 73 ml/min; Estimated Glomerular Filt Rate > 60; Glucose 80 mg/dL (65-110); Potassium 3.6 mmol/L (3.4-5.0); Sodium 138 mmol/L (137-145)
--- NOTE | 2024-03-03 06:45 | PC.NURSE ---
I have reviewed the charting and agree with the findings. Will continue to monitor and watch for changes.
[2024-03-03 08:00] VITALS: BP 109/63; PULSE 89; RESP 17; TEMP 36.2; O2SAT 100
[2024-03-03] MEDS: ENOXAPARIN 40 MG/0.4 ML SYRINGE SUB-Q (08:20)
[2024-03-03] MEDS: PANTOPRAZOLE SODIUM IV 40 MG VIAL IV PUSH (08:20)
[2024-03-03] MEDS: hydroCHLOROthiazide 25 MG TABLET PO (08:20)
[2024-03-03] MEDS: FLUoxetine HCL 10 MG CAPSULE PO (08:20)
[2024-03-03] MEDS: CALCIUM CITRATE 315 MG/VITAMIN D 6.25 MCG (250 UNITS) TAB 1 TABLET PO (08:20)
[2024-03-03] MEDS: MULTIVITAMINS THERAPEUTIC TAB (*BKC) 1 TABLET PO (08:20)
[2024-03-03] MEDS: FERROUS SULFATE DRIED 142 MG TABCR PO (08:21)
--- NOTE | 2024-03-03 10:20 | PM.DS ---
DS: Admitting Diagnosis Discharge Date 03/04/2024 Admitting Diagnosis Diverticulitis DS: Discharge Diagnosis Discharge Diagnosis (1) Diverticulitis large intestine: Code(s): K57.32 - Diverticulitis of large intestine without perforation or abscess without bleeding Status: Acute (2) Depression: Code(s): F32.A - Depression, unspecified Status: Acute Plan Acute diverticulitis Blood cultures NGTD Abdominal CT showed sigmoid diverticulitis with inflammatory changes Surgery consulted IV Zosyn Pain control Antiemetics PPI Advance diet to low fiber as tolerated Normal WBC today Educated on diet changes HX depression: Resume patient's Fluoxetine Code status: Full code per patient DVT prophylaxis: Lovenox Stress ulcer prophylaxis: Protonix 40 daily PT/OT notes: Ambulatory Disposition: Patient was admitted to the medical-surgical unit with acute diverticulitis will continue with IV antibiotic therapy and advance patient to a low-fiber diet as tolerated. If patient tolerates diet well can likely discharge in the a.m. DS: Summary Hospital Course Reason for hospitalization: Diverticulitis Hospital Course: Admission: 53 year old female with past medical history of hyperlipidemia, kidney stones, anxiety/depression, methamphetamine use (last used 2013) presents to the hospital for abdominal pain after being transferred from [place] ER. Patient states she woke up yesterday morning with severe nonradiating left lower quadrant pain. She originally thought this was a kidney stone and continued throughout her day, however the pain continued to worsen. She then started having loose bowel movements and was unable to tolerate any oral intake. She denies fevers, nausea/vomiting. The pain continued to increase reaching a 10/10 which lead patient to seek medical treatment at [place] ED. While at [place] patient was diagnosed with diverticulitis as seen on imaging. She states the provider there was concerned about a bleed and transferred her to [place] at that time. She denies hematochezia and melena. ED workup: CBC with leukocytosis 13.8 and mild anemia H/H 11.9/37.3. Chemistry unremarkable. Lactic 0.5. Urinalysis without concern for infection. Blood culture obtained. Abdomen/pelvis CT reveals acute complicated sigmoid diverticulitis, developing abscess not excluded. Hyperdense free pelvic fluid, as can be seen with infected fluid or bowel content. Multiple adjacent gas collections may represent localized microperforation versus gas trapped within adjacent diverticuli. Patient started on analgesics and IV Zosyn. Surgery consulted. 03/02/2024: Patient reports feeling better today tolerating oral intake physical exam was benign and WBC down to 8.8 educated patient food restrictions for diverticulitis. Will transition patient to low-fiber diet if able to tolerate can likely discharge home in the a.m. 03/03/2024: DISCHARGED Patient was seen and assessed stated discharge tolerating full diet denied any further abdominal pain. Normal WBC and remained afebrile reported passing gas and BM. Patient with overall improvement was discharged home ambulatory with p.o. antibiotics to complete course was also provided education of low-fiber diet. Recommended follow-up with GI. Status at Discharge Functional status at discharge: independent ambulation Overall status at discharge: patient is back to baseline Time Spent with Patient Time attestation: Total time spent providing and/or coordinating discharge services: Time spent: Greater than 30 minutes Exam Narrative: Physical Exam: GENERAL: Alert and oriented x 3. No acute distress. EYES: EOMI. No scleral icterus. PERRLA. HEENT: Moist mucous membranes. LUNGS: Clear to auscultation bilaterally. No accessory muscle use. CARDIOVASCULAR: Regular rate and rhythm. No murmur. No JVD. S1-S2 ABDOMEN: Soft, non tenderness and non-distended.
--- NOTE | 2024-03-03 11:15 | P.PNGS_ITS ---
Progress Note: A&P Assessment and Plan (1) Diverticulitis large intestine: Code(s): K57.32 - Diverticulitis of large intestine without perforation or abscess without bleeding Status: Acute Assessment and Plan: Patient appears to have uncomplicated sigmoid diverticulitis which has improved with non operative management with bowel rest and IV antibiotics. Her abdominal exam today remains benign. WBC count normalized. Okay to discharge the patient today from a surgical standpoint on a low-fiber diet and oral antibiotics for another 7 to 10 days. Since this was her 1st episode of diverticulitis really n o complicating factors, we would not recommend an elective sigmoid colectomy unless she has further issues with diverticulitis in the future. Plan I have discussed the patient's case and plan of care with Dr. Chaparro. Subjective Subjective Date/Time Seen: 03/03/24 11:15 Patient reports: no new complaints, flatus and bowel movement Interval history: Patient doing well today with no acute changes overnight. Denies any abdominal pain, nausea, or vomiting. Tolerating low-fiber diet. Exam Const: General: comfortable and no acute distress GI: Inspection: non-distended GI Palp: Yes Soft to palpation, No Tenderness to palpation present (GI), No Guarding due to palpation present (GI) and No Rebound tenderness present Auscultation: normal bowel sounds Objective Data Vital Signs Vital Signs: Vital Signs - 24 hr 03/02/24 11:47 03/02/24 16:00 03/02/24 20:00 Temperature 97.8 F 98.1 F 97.7 F Pulse Rate 87 98 83 Respiratory Rate 18 18 16 Blood Pressure 105/62 106/63 123/74 Pulse Oximetry 100 100 99 Oxygen Delivery 03/02/24 22:37 03/02/24 23:49 03/03/24 04:00 Temperature 97.6 F 97.9 F Pulse Rate 105 H 91 Respiratory Rate 18 16 Blood Pressure 137/81 131/74 Pulse Oximetry 99 98 Oxygen Delivery Room Air 03/03/24 08:00 03/03/24 08:20 Temperature 97.1 F L Pulse Rate 89 Respiratory Rate 17 Blood Pressure 109/63 Pulse Oximetry 100 Oxygen Delivery Room Air Intake/Output Intake/Output: Intake & Output 02/29/24 03/01/24 03/02/24 03/03/24 23:59 23:59 23:59 23:59 Intake Total 2066 1980 740 Output Total 0 Balance 2065 1979 740 Labs Labs: Laboratory Results - last 24 hr 03/03/24 06:09 WBC 6.2 RBC 4.09 L Hgb 11.6 L Hct 36.8 L MCV 90.0 MCH 28.4 MCHC 31.5 L RDW 13.2 Plt Count 240 MPV 10.3 Sodium 138 Potassium 3.6 Chloride 104 Carbon Dioxide 28 Anion Gap 6 BUN 10 Creatinine 0.90 Estim Creat Clear Calc 73 Estimated GFR > 60 Glucose 80 Calcium 8.4 Total Bilirubin 0.7 AST 36 ALT 20 Alkaline Phosphatase 132 H Total Protein 6.0 L Albumin 3.1 L
== END 2024-03-03 11:00 | disposition home or self-care (01) | DRG 244 ==
PROVIDERS: Surgery; Admitting Provider Internal Medicine; PCP Nurse Practitioner Family; Visit Provider Nurse Practitioner Family
DX: K57.32 Diverticulitis of large intestine without perforation or abscess without bleeding (principal); E78.5 Hyperlipidemia, unspecified; F41.8 Other specified anxiety disorders; F15.90 Other stimulant use, unspecified, uncomplicated; Z96.659 Presence of unspecified artificial knee joint; Z87.442 Personal history of urinary calculi; Z98.84 Bariatric surgery status; Z98.1 Arthrodesis status
CPT/HCPCS: 36415; 80048; 80053; 83605; 83735; 84100; 85025; 85027; 85610; 85730; A9270; J1170; J1650; J1885; J2405; J2470; J2543

== ENCOUNTER 2024-06-03 10:45 | Outpatient (CLI) | payer OTHER, SELFPAY ==
--- NOTE | ~2024-06-03 | XR_ITS ---
EXAMINATION: XR chest 2V 06/03/2024 11:09 INDICATION: Cough for 2 weeks PROCEDURE: 2 view chest COMPARISON: Comparison to multiple prior studies sequentially, with oldest reviewed study dated 11/11. FINDINGS: The lungs are clear. The cardiomediastinal silhouette is upper normal limits. There are n o pleural effusions. There is no pneumothorax suspected. IMPRESSION: 1: NO ACUTE CARDIOPULMONARY DISEASE. Reviewed, dictated and finalized at location B.
--- NOTE | ~2024-06-03 | XR_ITS ---
XR hand BI arthritis min 3V Ordering provider: Lenin Posadas DO History: . chronic b/l hand pain, NKI . Comparison: None. FINDINGS: RIGHT HAND: --BONES: No acute fracture or dislocation. No osteopenia. --JOINT SPACES: Mild narrowing of the distal interphalangeal joints.. No erosion, osteophytosis or sc lerosis. --SOFT TISSUES: Unremarkable. No soft tissue swelling or nodules. LEFT HAND: --BONES: No acute fracture or dislocation. --JOINT SPACES: Mild narrowing of the distal interphalangeal joints. No erosion, osteophytosis or scl erosis. --SOFT TISSUES: Unremarkable. No soft tissue swelling or nodules. IMPRESSION: 1. No acute osseous abnormality bilateral hands. 2. 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 Reviewed, dictated and finalized at location A.
[2024-06-03 10:57] LABS: Basophils Absolute Auto 0.08 K/mm3 (0.00-0.10); Basophils Percent Auto 0.9 % (0.0-1.0); Eosinophils Absolute Auto 0.18 K/mm3 (0.02-0.50); Hematocrit 40.6 % (35.0-49.0); Hemoglobin 13.2 g/dL (12.0-15.0); Immature Granulocyte Absolute 0.04 K/mm3 (0.00-0.00); Immature Granulocyte Percent A 0.4 % (0.0-0.0); Lymphocytes Absolute Auto 2.35 K/mm3 (1.10-4.50); Lymphocytes Percent Auto 26.2 % (18.0-42.0); Mean Corpuscular HGB Conc 32.5 g/dL (32-36); Mean Corpuscular Volume 86.2 fL (78.0-102.0); Mean Platelet Volume 9.4 fl (9.2-11.8); Monocytes Absolute Auto 0.63 K/mm3 (0.10-0.90); Neutrophils Absolute Auto 5.69 K/mm3 (1.70-7.20); Neutrophils Percent Auto 63.5 % (50.0-70.0); Platelet Count Result 317 K/mm3 (150-420); Red Blood Count 4.71 M/mm3 (4.20-5.40); Red Cell Distribution Width 14.4 % (11.6-14.4)
[2024-06-03 11:33] LABS: Rheumatoid Factor Screen Negative (Negative)
[2024-06-03 11:38] LABS: Alanine Aminotransferase 26 U/L (14-59); Albumin Level 3.1 g/dL (3.4-5.0); Alkaline Phosphatase 123 U/L (46-116); Anion Gap 8 mmol/L (4-12); Aspartate Amino Transferase 17 U/L (15-37); Bilirubin,Total 0.6 mg/dL (0.00-1.00); Blood Urea Nitrogen 13 mg/dL (7-18); Calcium 8.9 mg/dL (8.5-10.1); Carbon Dioxide 29 mmol/L (21-32); Chloride 102 mmol/L (98-108); Cholesterol 180 mg/dL (0-200); Estimated Glomerular Filt Rate > 60; Glucose 98 mg/dL (70-99); HDL Direct 64 mg/dL (40-60); LDL Cholesterol Calculated 97 mg/dL (<130); Osmolality Calculated 288 mOsm/kg (285-295); Potassium 4.6 mmol/L (3.5-5.1); Sodium 139 mmol/L (136-145); Total Protein 6.4 g/dL (6.4-8.2); Triglycerides 96 mg/dL (0-150)
[2024-06-03 11:52] LABS: CRP < 0.5 mg/dL (0.0-0.9)
[2024-06-03 11:59] LABS: Thyroid Stimulating Hormone Reflex 2.18 u/IU/mL (0.36-3.74)
[2024-06-04 08:08] LABS: ANA Cascade Screen NEGATIVE (NEGATIVE)
== END 2024-06-03 10:46 | disposition home or self-care (01) ==
LOC: CHSLAB 10:47
PROVIDERS: PCP Family Medicine; Visit Provider Family Medicine
DX: Z00.00 Encounter for general adult medical examination without abnormal findings (principal); J44.9 Chronic obstructive pulmonary disease, unspecified; M79.641 Pain in right hand; M79.642 Pain in left hand; E03.9 Hypothyroidism, unspecified; M19.042 Primary osteoarthritis, left hand; M19.041 Primary osteoarthritis, right hand
CPT/HCPCS: 36415; 71046; 73130; 80053; 80061; 83516; 84443; 85025; 86038; 86140; 86225; 86235; 86430

== ENCOUNTER 2024-11-09 09:29 | Emergency (ER) | payer OTHER, SELFPAY ==
[2024-11-09] VITALS (32 sets, daily range): BP systolic 124–143; BP diastolic 65–111; PULSE 101–114; RESP 10–29; TEMP 35.9–36.6; O2SAT 96–100
--- NOTE | ~2024-11-09 | XR_ITS ---
XR chest 1V portable 11/09/2024 10:31 Indication: Shortness of breath Procedure: AP portable chest Comparison: Comparison to multiple prior studies sequentially, with oldest reviewed study dated 03/2009. Findings: Enlarged cardiopericardial silhouette. Cannot exclude pericardial effusion. No focal air sp birgit disease, pulmonary edema, pleural effusion or suspected pneumothorax. Impression: 1: Enlarged cardiopericardial silhouette. Cannot exclude pericardial effusion. Reviewed, dictated and finalized at location A. Impression: 1: Enlarged cardiopericardial silhouette. Cannot exclude pericardial effusion.
--- NOTE | ~2024-11-09 | CT_ITS ---
EXAMINATION: CTA chest DATE: 11/09/2024 11:36 CDT INDICATION: Shortness of breath with activity. Bilateral lower extremity swelling. TECHNIQUE: Computed tomographic angiography (CTA) of the chest was performed with 100 mL Omnipaque-35 0 intravenous contrast. The dose-length product was 581.71 mGy-cm. Maximum intensity projection 3D-re constructions of the aorta and other arteries were constructed by the technologist on a separate work station. COMPARISON: Chest x-ray dated 11/09/2024. FINDINGS: Study technically adequate without evidence for pulmonary embolism. No evidence for aortic aneurysm or dissection. There is global cardiomegaly. No significant pleural or pericardial effusion. There is ill-defined enhancement of the left hepatic lobe, likely transient hepatic attenuation diff erence. There is focal fatty infiltration of the falciform ligament. There are groundglass opacities in the lower lobes dependently, likely atelectasis. No endobronchial lesions. No thoracic lymphadenop athy. Mild thoracic spondylosis. IMPRESSION: 1. Moderate global cardiomegaly. Reviewed, dictated and finalized at location A.
--- NOTE | 2024-11-09 09:39 | ED_ITS ---
HPI - SOB/Dyspnea General Chief Complaint: Shortness of Breath/Dyspnea Stated Complaint: SOB Time Seen by Provider: 11/09/24 09:38 Source: patient Mode of arrival: ambulatory Limitations: no limitations History of Present Illness HPI Narrative: 54-year-old female with a history anxiety/ depression, dyslipidemia, status post gastric bypass, status post spinal fusion presents to the ED with a 4 day history of -- shortness of breath. dyspnea on exertion and paroxysmal nocturnal dyspnea. no history of CAD /stress test. -- cough which is productive of mucoid sputum -- Worsening of her chronic leg swelling had flu-like symptoms 3 weeks ago no fever or chills MD elicited complaint: shortness of breath and cough Onset (ago): day(s) ( 4 days) Context: recent illness Timing: constant Severity: mild Exacerbating factors: lying flat and exertion Relieving factors: nothing Associated symptoms: denies other symptoms and cough Treatment prior to arrival: none Related Data Home oxygen amount: none Home Medications ?Medication ?Instructions ?Recorded ?Confirmed ?Last Taken ?Type calcium citrate 500 mg (2,376 mg) 500 mg PO TID 03/01/24 06/03/24 Unknown History effervescent tablet cyanocobalamin (B12)-cobamamide 1 santa sublingual MONTHLY 03/01/24 06/03/24 Unknown History 5,000 mcg-100 mcg sublingual lozenge (B12) multivitamin 1 tablet PO DAILY 03/01/24 06/03/24 Unknown History Allergies Allergy/AdvReac Type Severity Reaction Status Date / Time latex Allergy Unknown ITCHING Verified 11/09/24 09:36 WITH GLOVES adhesive AdvReac Unknown ITCHING Verified 11/09/24 09:36 Review of Systems 2 Review of Systems: All systems reviewed & are unremarkable except as noted in HPI and below Constitutional: Constitutional: Reports as per HPI and Reports no additional constitutional complaints Eyes: Eyes: Reports as per HPI and Reports no additional eye complaints ENT: Reports system reviewed and no additional complaints, except as documented and Reports as per HPI Cardiovascular: Cardiovascular: Reports as per HPI and Reports no additional cardiovascular complaints Respiratory: Respiratory: Reports as per HPI, Reports no additional respiratory complaints, Reports cough and Reports dyspnea Gastrointestinal: Gastrointestinal: Reports as per HPI and Reports no additional gastrointestinal complaints Genitourinary: Genitourinary: Reports no additional female genitourinary complaints and Reports as per HPI Musculoskeletal: Musculoskeletal: Reports no additional musculoskeletal complaints and Reports as per HPI Integumentary/Breasts: Skin/Breast: Reports system reviewed and no additional complaints, except as docu and Reports as per HPI Neurologic: Reports system reviewed and no additional complaints, except as documented and Reports as per HPI Psychiatric: Psychiatric: Reports no additional psychiatric complaints and Reports as per HPI Endocrine: Endocrine: Reports no additional endocrine complaints and Reports as per HPI Hematologic/Lymphatic: Hematologic/Lymphatic: Reports no additional hematologic/lymphatic complaints and Reports as per HPI Allergic/Immunologic: Allergic/Immunologic: Reports no additional allergic/immunologic complaints and Reports as per HPI [facility] Past Medical History Medical History Methamphetamine use Depression Anxiety Hyperlipidemia Dysphagia Surgical History Surgical History History of tubal ligation 1993 History of spinal fusion 2018. L4/5, S1 History of lumpectomy 1988. Per patient was benign. History of knee replacement 2021 with revision in 2022 H/O gastric bypass November 2011 Family History Family History Mother Asthma Heart disease Father Heart disease Sibling ALS (amyotrophic lateral sclerosis) Grandparent Diabetes mellitus Cancer Grandparent Diabetes mellitus Cancer Grandparent Heart disease Social History Social History Social History: Lives with , son and sons girl friend One dog in the home Smoking status: Never smoker Second hand tobacco smoke exposure: No Alcohol intake: never Alcohol use details: Social drinking every few years Substance use: former Substance use type: does not use and methamphetamine Other substance usage details: Patient reports smoking methamphetamine 3 times. Last use: 2013 Do You Feel Safe in your Home?: Yes Lack of Transportation: YES Lack of Food: Never True Current Housing: I Have Housing Concerned About Future Housing: No Difficulty Paying Gas/Electric Bills: YES Difficulty Paying for Meds: No Currently Unemployed: No Education: Grade School Difficulty w/ Childcare or Family Care: No Living arrangements: with family Additional living arrangements comments: Lives with , son and sons girlfriend Spiritual care concerns: No Exam 2 Narrative: hypertensive with a blood pressure of 141/108 with a heart rate of 114. Const: General: no acute distress Nutritional Appearance: well nourished Orientation/consciousness: patient oriented x3 Limitations: no limitations HENMT: Head: normal to inspection Ears: external ears normal F birgit/Nose/Sinus: Normal external nose present Face and sinus: normal facial exam Mouth: Yes Normal oral and palatal mucosa present Throat: posterior oropharynx normal Eyes: Conjunctivae: conjunctivae normal Pupils: Equal, round and reactive pupils present EOM: EOMs intact bilaterally Direct Ophthalmoscopy: no photophobia Neck: Neck: normal visual inspection, no lymphadenopathy and no meningeal signs Chest: Chest palpation & inspection: normal inspection of the chest Resp: Effort & Inspection: normal respiratory effort Auscultation: clear to auscultation bilaterally Cardio: Rate: tachycardic Rhythm: regular rhythm GI: GI Palp: Yes Soft to palpation Auscultation: normal bowel sounds O ther: No tenderness/ rigidity /rebound. : General: Yes no CVA tenderness Urinary Catheter: Urinary Catheter: patent and draining Back/Spine/Pelvis: Back: no CVA tenderness Skin: General skin exam: normal color Rashes: no rashes Wounds: no wounds Neuro: General: patient oriented x3, moves all extremities, no meningeal signs, no focal motor deficits and CN's II-XI intact bilaterally Cranial nerves: Yes Nystagmus not present Speech: normal speech Extrem: General: normal to inspection and edema Psych: Mental Status: mental status grossly normal Affect: normal affect Attitude: cooperative Course Course Emergency Course: Cough shortness of breath/leg swelling-- EKG suggestive of right atrial/right ventricular hypertrophy. Patient is noted to have elevated proBNP of 6289 with renal insufficiency and elevated AST. All this is suggestive of CHF. patient had a CTA of chest which did not show any evidence of PE. It revealed cardiomegaly the patient is compensated this time. Will have the patient follow-up with Cardiology. hypertension will discontinue HCTZ and start the patient on Aldactone, Lasix and ARB. Vital Signs Vital signs: Vital Signs Temperature 35.9 C L 11/09/24 09:29 Pulse Rate 114 H 11/09/24 09:29 Respiratory Rate 20 11/09/24 09:29 Blood Pressure 141/108 H 11/09/24 09:29 Pulse Oximetry 99 11/09/24 09:29 Oxygen Delivery Room Air 11/09/24 09:29 Temperature 35.9 C L 11/09/24 09:29 Pulse Rate 108 H 11/09/24 12:45 Respiratory Rate 19 11/09/24 12:45 Blood Pressure 134/111 H 11/09/24 12:59 Pulse Oximetry 99 11/09/24 12:45 Oxygen Delivery Room Air 11/09/24 09:30 MDM - SOB/Dyspnea MDM Narrative Medical decision making narrative: CHF Differential Diagnosis Differential diagnosis: Likely congestive heart failure and pulmonary embolism Medical Records Attestation: I reviewed the patient's medical records. Lab Data Attestation: I reviewed the patient's lab results. 11/09/24 10:08 11/09/24 10:08 Labs: Lab Results 11/09/24 11/09/24 Range/Units 10:07 10:08 WBC 10.5 (4.8-10.8) K/mm3 RBC 5.25 (4.20-5.40) M/mm3 Hgb 13.6 (12.0-15.0) g/dL Hct 43.8 (35.0-49.0) % MCV 83.4 (78.0-102.0) fL MCH 25.9 L (27.0-31.0) pg MCHC 31.1 L (32-36) g/dL RDW 16.7 H (11.6-14.4) % Plt Count 269 (150-420) K/mm3 MPV 10.0 (9.2-11.8) fl Immature Gran % (Auto) 0.3 H (0.0-0.0) % Neut % (Auto) 65.3 (50.0-70.0) % Lymph % (Auto) 24.6 (18.0-42.0) % [place] % (Auto) 6.4 (2.0-11.0) % Eos % (Auto) 2.5 (1.0-6.0) % Baso % (Auto) 0.9 (0.0-1.0) % Lymph # (Auto) 2.59 (1.10-4.50) K/mm3 [place] # (Auto) 0.67 (0.10-0.90) K/mm3 Eos # (Auto) 0.26 (0.02-0.50) K/mm3 Baso # (Auto) 0.09 (0.00-0.10) K/mm3 Abs Immat Gran (auto) 0.03 H (0.00-0.00) K/mm3 Absolute Neuts (auto) 6.89 (1.70-7.20) K/mm3 Absolute Nucleated RBC 0.00 (0.00-0.00) K/mm3 Nucleated RBC % 0.0 (0-0.0) % Sodium 140 (136-145) mmol/L Potassium 3.6 (3.5-5.1) mmol/L Chloride 104 (98-108) mmol/L Carbon Dioxide 28 (21-32) mmol/L Anion Gap 8 (4-12) mmol/L BUN 24 H (7-18) mg/dL Creatinine 1.18 H (0.55-1.02) mg/dL Estim Creat Clear Calc 56 ml/min Estimated GFR 48 L (59 - ) Glucose 99 (70-99) mg/dL Calculated Osmolality 294 (285-295) mOsm/kg Lactic Acid 1.8 (0.4-2.0) mmol/L Calcium 8.4 L (8.5-10.1) mg/dL Magnesium 1.5 L (1.8-2.4) mg/dL Total Bilirubin 1.1 H (0.00-1.00) mg/dL AST 39 H (15-37) U/L ALT 37 (14-59) U/L Alkaline Phosphatase 164 H (46-116) U/L Troponin I 22.9 (0.00-60.4) ng/L NT-Pro-B Natriuret Pep 6289 H (0-125) pg/mL Total Protein 6.7 (6.4-8.2) g/dL Albumin 3.0 L (3.4-5.0) g/dL TSH 2.50 (0.36-3.74) uIU/mL Influenza A (RT-PCR) Negative (Negative) Influenza B (RT-PCR) Negative (Negative) RSV (RT-PCR) Negative (Negative) SARS-CoV-2 RNA (RT-PCR) Negative (Negative) ECG Data EKG #1: ECG completion time: 10:06 Interpretation: sinus tachycardia. Right axis deviation. Right ventricular hypertrophy. No ST elevation. Discharge Plan Discharge Clinical Impression: CHF (congestive heart failure) Qualifiers: Heart failure type: unspecified Heart failure chronicity: unspecified Qualified Code(s): I50.9 - Heart failure, unspecified Patient Disposition: Home, Self-Care Condition: Stable Instructions: Antibiotic Form Patient Language: Bulgarian Prescriptions: New furosemide [Lasix] 20 mg tablet 20 mg PO DAILY Qty: 30 0RF spironolactone [Aldactone] 25 mg tablet 25 mg PO DAILY Qty: 30 0RF losartan [Cozaar] 25 mg tablet 25 mg PO DAILY Qty: 30 0RF Discontinued hydrochlorothiazide 25 mg tablet 25 mg PO DAILY Qty: 90 3RF ferrous sulfate 250 mg (50 mg iron) Tablet Extended Release 250 mg PO DAILY azithromycin 250 mg tablet See Rx Instructions PO .COMPLEX Qty: 6 0RF Rx Instructions: For 250 mg dose pack: take 500 mg today (day 1), then 250 mg for 4 days (days 2-5) PO prednisone 50 mg tablet 50 mg PO DAILY Qty: 5 0RF No Action fluoxetine 10 mg capsule 10 mg PO DAILY Qty: 90 3RF multivitamin Tablet 1 tablet PO DAILY calcium citrate 500 mg Tablet, Effervescent 500 mg PO TID B12 5,000-100 mcg Lozenge 1 santa SUBLINGUAL MONTHLY Follow-up/Referrals: Lenin Posadas DO [Primary Care Provider] - Time of Disposition: 13:10
--- NOTE | 2024-11-09 09:57 | ECG_ITS ---
Test Date: 2024-11-09 10:06:06 Measurements Intervals [place] Rate: 101 P: 66 IN: 168 QRS: 121 QRSD: 114 T: 52 QT: 418 QTc: 542 Interpretive Statements SINUS TACHYCARDIA RIGHT ATRIAL ENLARGEMENT [0.3mV P-WAVE] RIGHT VENTRICULAR HYPERTROPHY [SOME/ALL OF: PROMINENT R IN V1, LATE TRANSITION, RAD, JANE, SSS] NONSPECIFIC ST AND T-WAVE ABNORMALITY No previous ECG available for comparison Electronically Signed On 11-09-2024 12:43:40 CDT by Kate Abbott M.D.
[2024-11-09 10:13] LABS: Basophils Absolute Auto 0.09 K/mm3 (0.00-0.10); Basophils Percent Auto 0.9 % (0.0-1.0); Eosinophils Absolute Auto 0.26 K/mm3 (0.02-0.50); Eosinophils Percent Auto 2.5 % (1.0-6.0); Hematocrit 43.8 % (35.0-49.0); Hemoglobin 13.6 g/dL (12.0-15.0); Immature Granulocyte Absolute 0.03 K/mm3 (0.00-0.00); Immature Granulocyte Percent A 0.3 % (0.0-0.0); Lymphocytes Absolute Auto 2.59 K/mm3 (1.10-4.50); Lymphocytes Percent Auto 24.6 % (18.0-42.0); Mean Corpuscular HGB Conc 31.1 g/dL (32-36); Mean Corpuscular Hemoglobin 25.9 pg (27.0-31.0); Mean Corpuscular Volume 83.4 fL (78.0-102.0); Monocytes Absolute Auto 0.67 K/mm3 (0.10-0.90); Monocytes Percent Auto 6.4 % (2.0-11.0); Neutrophils Absolute Auto 6.89 K/mm3 (1.70-7.20); Neutrophils Percent Auto 65.3 % (50.0-70.0); Platelet Count Result 269 K/mm3 (150-420); Red Blood Count 5.25 M/mm3 (4.20-5.40); Red Cell Distribution Width 16.7 % (11.6-14.4); White Blood Count 10.5 K/mm3 (4.8-10.8)
--- OUTSIDE RECORDS SUMMARY | 2024-11-09 10:16 | XMS_ITS | Referral Summary ---
Author Organization [facility] Address [address] [place] [address] Care Team Providers Care Private Wealth Advisor Name Role Phone Quiroz, Priyanka Galeas NP Primary Care Provider [phone] Gaston Chowdhury MD Unavailable [phone] Allergies Active Allergy Reactions Criticality Noted Date Comments Latex Rash Medium 02/12/2016 Nsaids (Non-Steroidal Anti-Inflammatory Drug) Other (See comments) Low 09/16/2021 Hx of bariatric surgery Medications multivitamin capsule Take 1 capsule by mouth 3 (three) times a day Active calcium carbonate (OS-FABIOLA) 1,500 mg (600 mg of elemental calcium) tablet Take by mouth daily Active mecobalamin (B12 ACTIVE ORAL) Take 1 each by mouth every 30 (thirty) days Active albuterol HFA (PROVENTIL HFA,VENTOLIN HFA,PROAIR HFA) 90 mcg/actuation inhaler Inhale 2-4 puffs every 4 (four) hours as needed for wheezing or shortness of breath 18 g 1 3 Active FLUoxetine (PROzac) 20 mg capsule Take 1 capsule (20 mg total) by mouth daily Active hydroCHLOROthia zide (HYDRODIURIL) 12.5 mg tablet Take 1 tablet (12.5 mg total) by mouth daily Active ferrous sulfate ER 324 mg (65 mg iron) EC tabletIndicatio ns:Iron Deficiency Anemia Take 65 mg by mouth daily with breakfast Active acetaminophen-c odeine (TYLENOL with CODEINE #3) 300-30 mg per tablet 3 Active amoxicillin 500 mg capsule 3 Active Active Problems Problem Noted Date Diagnosed Date Cyst of thyroid 04/03/2022 Aftercare following left knee joint replacement surgery 10/22/2021 Primary osteoarthritis of left knee 06/28/2021 Encounter for screening colonoscopy 04/11/2020 Overview (04/11/2020): Added automatically from request for surgery [id number] Family history of colon cancer 04/11/2020 Overview (04/11/2020): Added automatically from request for surgery [id number] Low back pain 03/27/2020 Multiple joint pain 03/27/2020 Obesity 03/27/2020 History of bariatric surgery 03/27/2020 Other spondylosis with radiculopathy, lumbar reg ion 02/24/2019 Anxiety 02/14/2019 Vitamin B12 deficiency 03/01/2018 Insomnia 11/11/2017 Kidney stone 03/14/2016 Immunizations Immunization Administration Dates Next Due Pfizer SARS-CoV-2 Monovalent Vaccination (12+ Yrs) PURPLE 04/20/2021,11/01/2020,10/12/2020 Social History Tobacco Use Types Packs/Day Years Used Date Smoking Tobacco: Never Passive Smoke Exposure: Current Smokeless Tobacco: Never Tobacco Cessation:Counseling Given: Not Answered Alcohol Use Standard Drinks/Week Comments No 0 (1 standard drink = 0.6 oz pur e alcohol) AUDIT-C Answer Date Recorded Q1: How often do you have a drink containing alc ohol? Monthly or less 12/30/2022 Q2: How many drinks containi ng alcohol do you have on a typical day when you are drinking? 1 or 2 12/30/2022 Q3: How often do you have si x or more drinks on one occasion? Never 12/30/2022 Personal Safety Answer Date Recorded Have you ever been in or are you currently in a harmful physical or emotional relationship or is someone making you feel afraid or unsafe? Denies 01/05/2023 Comments No Sex and Gender Information Value Date Recorded Sex Assigned at Not on file Legal Sex Female 8:09 AM LEAD PERSON Gender Identity Female 02/20/2023 6:26 AM CDT Sexual Orientation Straight 06/21/2021 4: 03 PM CDT Last Filed Vital Signs Vital Sign Reading Time Taken Comments Blood Pressure 140/98 08/11/2023 7:12 PM LEAD PERSON Pulse 113 08/11/2023 7:12 PM LEAD PERSON Temperature 36.6 C (97.8 F) 08/11/2023 7:12 PM LEAD PERSON Respiratory Rate 18 08/11/2023 7:12 PM LEAD PERSON Oxygen Saturation 97% 08/11/2023 7:12 PM LEAD PERSON Inhaled Oxygen Concentration - - Weight 103.4 kg (228 lb) 08/11/2023 7:12 PM LEAD PERSON Height 162.6 cm (5' 4.02 ) 08/11/2023 7:12 PM CS T Body Mass Index 39.12 08/11/2023 7:12 PM LEAD PERSON Plan of Treatment Not on file Medical Devices Implanted Type Area Dental Equipment Technician Device Identifier Shelf Expiration Date Model / Serial / Lot [employer] 6195-1-001 Cement Bone Simplex Gentamicin High Viscosity 40gm - [id number] Implanted:Qty: 1 on 09/16/2021 by Gaston Chowdhury MD at [facility] Left: Knee [employer] 01/14/2023 6195-1-001 / / [id number] [employer] 6195-1-001 Cement Bone Simplex Gentamicin High Viscosity 40gm - [id number] Implanted:Qty: 1 on 09/16/2021 by Gaston Chowdhury MD at [facility] Left: Knee [employer] 01/14/2023 6195-1-001 / / [id number] [employer] [id number] Attune S+ Cement Fix Bearing Knee 5 Baseplate Tibial - [id number] Implanted:Qty: 1 on 09/16/2021 by Gaston Chowdhury MD at [facility] Left: Knee [employer] 07/16/2031 [id number] / / [id number] [employer] [id number] Attune Cemented Posterior Stabilize Knee Left 5 Component Femoral - [id number] Implanted:Qty: 1 on 09/16/2021 by Gaston Chowdhury MD at [facility] Left: Knee [employer] 10/14/2030 [id number] / / [id number] [employer] [id number] Attune 6mm Posterior Stabilize Fix Bearing Knee 5 Insert Tibial - [id number] Implanted:Qty: 1 on 09/16/2021 by Gaston Chowdhury MD at [facility] Left: Knee [employer] 06/16/2026 [id number] / / [id number] [employer] Cement Bone Simplex Gentamicin High Viscosity 40gm 6195-1-001 - [id number] Implanted:Qty: 1 on 01/05/2023 by Gaston Chowdhury MD at [facility] Left: Knee [employer] 04/16/2024 6195-1-001 / / [id number] [employer] Attune 35mm Cemented Medialize Knee Dome Patellar [employer] [id number] - [id number] Implanted:Qty: 1 on 01/05/2023 by Gaston Chowdhury MD at [facility] Left: Knee [employer] 10/15/2027 [id number] / / [id number] Explanted Type Area Dental Equipment Technician Device Identifier Shelf Expiration Date Model / Serial / Lot [employer] [id number] Inlay [place] 7fr 24cm Pusher Fluoro Marker Atraumatic Insertion Latex Free - [id number] Implanted:Qty: 1 on 05/16/2021 by Jesus Alberto Muse MD at [facility] Explanted:Qty: 1 on 10/22/2021 Left: Ureter [employer] 12/12/2024 [id number] / / [id number] Procedures Procedure Name Priority Date/Time Associated Diagnosis Comments COLONOSCOPY 05/23/2020 11:09 AM CDT SCREENING MAMMOGRAM BILATERAL W LONG Schedule Routine, Read Routine (OP Routine) 05/16/2020 1:25 PM CDT Encounter for other screening for malignant neoplasm of breast from Last 3 Months or Most Recently Relevant to Health Maintenance Results * COLONOSCOPY (05/23/2020 11:09 AM CDT) Anatomical Region Laterality Modality Other Narrative Procedure Note Segundo Buchanan MD - 05/23/2020 11:09 AM CDT [facility] Patient Name: Nellie Gr Procedure Date: 05/23/2020 11:09 AM Date of : 1970 Admit Type: Outpatient Age: 50 Gender: Female Attending MD: Segundo Buchanan M.D. Room: [facility] ENDOSCOPY ROOM 1 Note Status: Finalized Patient Profile: This is a 50 year old female. Her grandfather anduncle both had colon cancer. Procedure: Colonoscopy Indications: Colon cancer screening in patient at increased risk: Family history of colorectal cancer in multiple 2nd degree relatives, Last colonoscopy: April 2010 Referring MD: Priyanka Quiroz, ANTHONY Providers: Segundo Buchanan M.D. Impression: - Diverticulosis in the sigmoid colon. - Internal hemorrhoids. - No specimens collected. Recommendation: - Repeat colonoscopy in 5 years for screeningpurposes. - Continue present medications. Medicines: Monitored Anesthesia Care Complications: No immediate complications. Estimated Blood Loss: Estimated blood loss: none. Procedure: Pre-Anesthesia Assessment: - Prior to the procedure, a History and Physical was performed, and patient medications and allergieswere reviewed. The patient's tolerance of previous anesthesia was also reviewed. The risks and benefitsof the procedure and the sedation options and riskswere discussed with the patient. All questions were answered, and informed consent was obtained. Prior Anticoagulants: The patient has taken no previous anticoagulant or antiplatelet agents. ASA Grade Assessment: II - A patient with mild systemicdisease. After reviewing the risks and benefits, the patientwas deemed in satisfactory condition to undergo the procedure. The benefits, risks and alternatives of theprocedure and sedation were discussed and informed consent was obtained. All questions were answered. Please referto the signed informed consent document in the medical record. The scope was passed under direct vision.The Pediatric Colonoscope [id number] was introduced through the anus and advanced to the the cecum, identified by appendiceal orifice andileocecal valve. Bowel prep was administered using a splitdose. The bowel preparation used was Miralax. The bowel preparation used was bisacodyl tablets. The qualityof the bowel preparation was good. Findings: The perianal and digital rectal examinations were normal. The cecum appeared normal. The ascending colon appeared normal. The transverse colon was unremarkable. The descending colon was normal. Multiple small-mouthed diverticula were found in the sigmoid colon.No polyps noted in the colon Internal hemorrhoids were found during retroflexion. The hemorrhoids were small. Electronically signed by Segundo Buchanan M.D. Segundo Buchanan M.D. 05/23/2020 11:41:37 AM Number of Addenda: 0 Note Initiated On: 05/23/2020 11:09 AM Procedure Code(s): --- Professional --- 69749, Colonoscopy, flexible; diagnostic, including collection of specimen(s) by brushing or washing, when performed (separateprocedure) Diagnosis Code(s): --- Professional --- Z80.0, Family history of malignant neoplasm of digestive organs K64.8, Other hemorrhoids K57.30, Diverticulosis of large intestine without perforation orabscess without bleeding CPT copyright 2017 [employer]. All rights reserved. The codes documented in this report are preliminary and upon assessment rn reviewmay be revised to meet current compliance requirements. Recognized by the [employer] for promoting quality in endoscopy Segundo Buchanan MD ENDOSCOPY PROCEDURES Final Result * Screening Mammogram Bilateral W Long (05/16/2020 1:25 PM CDT) Anatomical Region Laterality Modality Breast Bilateral Mammography 05/17/2020 8:56 AM CDT Impressions 05/17/2020 8:59 AM CDT There is no mammographic evidence of malignancy. A 1 year screening mammogram is recommended. BI-RADS: 1 - Negative. The patient has been or will be contacted. The patient will be entered into a reminder system with a target due date of 1 year for her next mammogram. Electronically signed by: Williams Allen M.D. Narrative 05/17/2020 8:59 AM CDT EXAMINATION: SCREENING MAMMOGRAM BILATERAL W LONG ORDERING HEALTHCARE PROVIDER: PRIYANKA QUIROZ HISTORY: Routine screening mammography. History of left breast biopsy. COMPARISON: 04/11/2013, 04/10/2012, 03/19/2011 TECHNIQUE: CC and MLO views of the bilateral breasts were obtained with digital technique using breast tomosynthesis with C view. Computer aided detection was utilized. FINDINGS: DENSITY: The tissue of the bilateral breasts is heterogeneously dense, which may obscure small masses. BREASTS: There are no suspicious masses, suspicious calcifications, or other suspicious findings in either breast. There has been no suspicious interval change. Priyanka Quiroz TARP REPAIRER IMG MAMMO PROCEDURES Final R esult from Last 3 Months or Most Recently Relevant to Health Maintenance Additional Health Concerns Infection Onset Date Last Indicated MDR gram neg/ESBL Comment:Germ watcher auto flagging. Specimen: URINE, CLEAN VOIDED Site: 12/17/15 Urine E. coli ESBL+ (MDRO) 12/18/2015 [address] [place] [address] [facility] Advance Directives For more information, please contact: [phone] * Full Code (Latest Code Status on File) Date Activated Date Inactivated Comments 09/16/2021 11:43 AM 09/16/2021 6:47 PM * Full Code Date Activated Date Inactivated Comments 05/16/2021 4:58 AM 05/16/2021 10:42 PM * Full Code Date Activated Date Inactivated Comments 05/23/2020 9:56 AM 05/23/2020 4:31 PM Care Teams Private Wealth Advisor Relationship Specialty Start Date End Date Priyanka Quiroz NP [address] [place] [address] PCP - General 03/28/20 Gaston Chowdhury MD [address] [place] [address] Surgeon Orthopedic Surgery 09/16/21
--- OUTSIDE RECORDS SUMMARY | 2024-11-09 10:16 | XMS_ITS | Clinical Summary ---
Author Organization [facility] Address [address], [facility] [address] [place] [address] Phone Care Team Providers Care Installation Service Representative Name Role Phone SteinerAlbertoPriyankacharlie WATTS CNP Primary Care Provider [phone] Allergies No known active allergies Medications potassium chloride (MICRO-K) 10 MEQ Capsule CR Take 1 Capsule by mouth 2 times daily. 30 Capsule 05/22/2021 Active Social History Tobacco Use Types Packs/Day Years Used Date Smoking Tobacco: Never Smokeless Tobacco: Never Alcohol Use Standard Drinks/Week Comments Never 0 (1 standard drink = 0.6 oz pur e alcohol) Comments No Sex and Gender Information Value Date Recorded Sex Assigned at Female 03/30/2023 11:18 AM CDT Legal Sex Female 10:01 PM CDT Gender Identity Female 03/30/2023 11:18 AM CDT Sexual Orientation Not on file Last Filed Vital Signs Vital Sign Reading Time Taken Comments Blood Pressure 123/66 05/22/2021 8:00 PM CDT Pulse 89 05/22/2021 8:00 PM CDT Temperature 37.8 C (100 F) 05/22/2021 3:00 PM CDT Respiratory Rate 26 05/22/2021 8:00 PM CDT Oxygen Saturation 100% 05/22/2021 8:00 PM CDT Inhaled Oxygen Concentration - - Weight 86.2 kg (190 lb) 05/22/2021 3:00 PM CDT Height 162.6 cm (5' 4 ) 05/22/2021 3:00 PM CDT Body Mass Index 32.61 05/22/2021 3:00 PM CDT Plan of Treatment Health Maintenance Due Date Last Done Comments Hepatitis C Virus (HCV) Screening 1970 Mammogram 1970 Hepatitis B Immunization (1 of 3 - 19+ 3-dose series) 1989 Colonoscopy 2015 Colorectal Cancer Screening 2015 Cologuard 2020 Immunochemical Fecal Occult Blood 2020 Pneumococcal Immunization (50+ years) (1 of 1 - PCV) 2020 Influenza Immunization (#1) 04/17/202404/18, 06/28/2021, 05/18/2021, Additional history exists SARS-COV-2 Immunization ( - 2023- season) 2024 05/08/2022, 04/20/2021, 11/01/2020, Additional history exists Respiratory Syncytial Virus (RSV) Immunization (Adult) (1 - 1-dose 75+ series) 2045 Zoster Immunization Completed 12/18/2021, DTaP/Tdap/Td Immunization Discontinued 02/17/2023 TdaP Immunization Completed 02/17/2023 Meningococcal Immunization (ACWY) Aged Out No longer eligible based on patient's age to complete this topic Rotavirus Immunization Aged Out No lo nger eligible based on patient's age to complete this topic Insurance MEDICAID [facility] Care Teams Installation Service Representative Relationship Specialty Start Date End Date Priyanka Steiner APRN, ANTONIO [address] [place] [address] PCP - General Family Medicine 05/22/21
--- OUTSIDE RECORDS SUMMARY | 2024-11-09 10:16 | XMS_ITS | Clinical Summary ---
Author Organization [facility] Address [address] [place] [address] Care Team Providers Care Stained Glass Window Designer Name Role Phone Quiroz, Priyanka Galeas NP Primary Care Provider Gaston Chowdhury MD Unavailable [phone] Allergies Active Allergy Reactions Criticality Noted Date [...] (04/11/2020): Added automatically from request for surgery [id number] Family history of colon cancer 04/11/2020 Overview (04/11/2020): Added automatically from request for surgery [id number] Low back pain 03/27/2020 Multiple joint pain 03/27/2020 Obesity 03/27/2020 History of bariatric surgery 03/27/2020 Other spondylosis with radiculopathy, lumbar reg ion 02/24/2019 Anxiety 02/14/2019 Vitamin B12 deficiency 03/01/2018 Insomnia 11/11/2017 Kidney stone 03/14/2016 Immunizations Immunization Administration Dates Next Due Pfizer SARS-CoV-2 Monovalent Vaccination (12+ Yrs) PURPLE 04/20/2021,11/01/2020,10/12/2020 Surgical History Surgery Date Site/Laterality Comments KNEE ARTHROCENTESIS Arthrocentesis of the left knee joint HYSTERECTOMY COLONOSCOPY 08/17/2009 - 08/16/2010 BACK SURGERY BLADDER SURGERY BARIATRIC SURGERY BREAST BIOPSY right BREAST LUMPECTOMY right SPINAL FUSION JOINT REPLACEMENT Left knee TUBAL LIGATION FOOT SURGERY Bilateral THROAT SURGERY goiter Medical History Medical History Date Comments Vertigo vertigo Hx Other Medical Back Pain Hx Other Medical Kidney Stones Hx Other Medical Gastric Bypass 12-15-11 Hx Other Medical Uterine Oblatio n 2006 Hx Other Medical Tubal Ligation 1993 Hx Other Medical Breast (right) lumpectomy 1985 Kidney stone Osteoarthritis Migraines PONV (postoperative nausea and vomiting) Motion sickness Irritable bowel syndrome Anxiety Pneumonia Allergic rhinitis Depression Family History Medical History Relation Name Comments Colon cancer Maternal Grandfather Colon cancer Mother's Brother ALS Other 1 Blood Clot Other 1 Cancer Other 1 Family history of Cancer; Heart disease Other 2 Family history of Heart disease; Hypertension Other 3 Family history of Hypertension; Arthritis Other 4 Family history of Arthritis; Diabetes Other 5 Family history of Diabetes mellitus; Relation Name Status Comments Maternal Grandfather Mother's Brother Other 1 Other 2 Other 3 Other 4 Other 5 Social History Tobacco Use Types Packs/Day Years [...] on file Legal Sex Female 8:09 AM HOPPER FILLER Gender Identity Female 02/20/2023 6:26 AM CDT Sexual Orientation Straight 06/21/2021 4: 03 PM CDT Obstetrics History Para Term AB IAB SAB Ectopic Multiple Livin g Live Births 3 2 2 Date Outcome GA Total Labor Labor/2nd/3rd Weight Sex Type Anes PTL Elana A1 A5 Name Clin Term Term Last Filed Vital Signs Vital Sign Reading Time Taken Comments Blood Pressure 140/98 08/11/2023 7:12 PM HOPPER FILLER Pulse 113 08/11/2023 7:12 PM HOPPER FILLER Temperature 36.6 C (97.8 F) 08/11/2023 7:12 PM HOPPER FILLER Respiratory Rate 18 08/11/2023 7:12 PM HOPPER FILLER Oxygen Saturation 97% 08/11/2023 7:12 PM HOPPER FILLER Inhaled Oxygen Concentration - - Weight 103.4 kg (228 lb) 08/11/2023 7:12 PM HOPPER FILLER Height 162.6 cm (5' 4.02 ) 08/11/2023 7:12 PM CS T Body Mass Index 39.12 08/11/2023 7:12 PM HOPPER FILLER Plan of Treatment Health Maintenance Due Date Last Done Comments Depression Screening 1970 Hepatitis C Screening 1970 DTaP/Tdap/Td Vaccine (1 - Tdap) 1981 Hepatitis B Screening 1988 Regular Well Visit/Exam 18-64 1988 Breast Cancer Screening-Mammogram 05/16/2021 05/16/2020, 04/11/2013 Covid-19 Vaccine ( season) 2024 05/08/2022, 04/20/2021, 11/01/2020, Additional history exists Influenza Vaccine (#1) 2024 2, 06/28/2021, 05/18/2021, Additional history exists Colon Cancer Screening-Colonoscopy 05/23/2030 05/23/2020 Colon Cancer Screening-CT Colonography Discontinued 05/23/2020 Colon Cancer Screening-DNA Stool Discontinued 05/23/2020 Colon Cancer Screening-FIT Discontinued 05/23/2020 Colon Cancer Screening-Sigmoidoscopy Discontinued 05/23/2020 Zoster Vaccine Completed 12/18/2021, 07/01/2021 Pneumococcal vaccine <65 Aged Out No longer eligible based on patient's age to complete this topic Medical Devices Implanted Type Area Communications Superintendent Device Identifier Shelf Expiration Date Model / Serial / Lot [employer] 6195-1-001 Cement Bone Simplex Gentamicin High Viscosity 40gm - [id number] Implanted:Qty: 1 on 09/16/2021 by Gaston Chowdhury MD at [facility] Left: Knee [employer] 01/14/2023 6195-1-001 / / [id number] [employer] 6195-1-001 Cement Bone Simplex Gentamicin High Viscosity 40gm - [id number] Implanted:Qty: 1 on 09/16/2021 by Gaston Chowdhury MD at [facility] Left: Knee [employer] 01/14/2023 6195-1-001 / / [id number] [employer] [id number] Attune S+ Cement Fix Bearing Knee 5 Baseplate Tibial - [id number] Implanted:Qty: 1 on 09/16/2021 by Gaston Chowdhury MD at [facility] Left: Knee [employer] 07/16/2031 [id number] / / [id number] [employer] [id number] Attune Cemented Posterior Stabilize Knee Left 5 Component Femoral - [id number] Implanted:Qty: 1 on 09/16/2021 by Gaston Chowdhury MD at [facility] Left: Knee [employer] 10/14/2030 [id number] / / [id number] [employer] [id number] Attune 6mm Posterior Stabilize Fix Bearing Knee 5 Insert Tibial - [id number] Implanted:Qty: 1 on 09/16/2021 by Gaston Chowdhury MD at [facility] Left: Knee [employer] 06/16/2026 [id number] / / [id number] [employer] Cement Bone Simplex Gentamicin High Viscosity 40gm 6195-1-001 - [id number] Implanted:Qty: 1 on 01/05/2023 by Gaston Chowdhury MD at [facility] Left: Knee [employer] 04/16/2024 6195-1-001 / / [id number] [employer] Attune 35mm Cemented Medialize Knee Dome Patellar Aox Sterile [id number] - [id number] Implanted:Qty: 1 on 01/05/2023 by Gaston Chowdhury MD at [facility] Left: Knee [employer] 10/15/2027 [id number] / / [id number] Explanted Type Area Communications Superintendent Device Identifier Shelf Expiration Date Model / Serial / Lot [employer] [id number] Inlay [place] 7fr 24cm Pusher Fluoro Marker Atraumatic Insertion Latex Free - [id number] Implanted:Qty: 1 on 05/16/2021 by Jesus Alberto Muse MD at [facility] Explanted:Qty: 1 on 10/22/2021 Left: Ureter [employer] 12/12/2024 [id number] / / [id number] Procedures Procedure Name Priority Date/Time Associated Diagnosis [...] MD - 05/23/2020 11:09 AM CDT Digestive [facility] Patient Name: Nellie Gr Procedure Date: 05/23/2020 11:09 AM Date of : 1970 Admit Type: Outpatient Age: 50 Gender: Female Attending MD: Segundo Buchanan M.D. Room: [facility] ENDOSCOPY ROOM 1 Note Status: Finalized Patient Profile: This is a 50 year old female. Her grandfather anduncle both had colon cancer. Procedure: Colonoscopy Indications: Colon cancer screening in patient at increased risk: Family history of colorectal cancer in multiple 2nd degree relatives, Last colonoscopy: April 2010 Referring MD: Priyanka Quiroz NP Providers: Segundo Buchanan M.D. Impression: - Diverticulosis [...] passed under direct vision.The Pediatric Colonoscope PCF-H190L [id number] was introduced through the anus and advanced [...] 11:09 AM Procedure Code(s): --- Professional --- 24791, Colonoscopy, flexible; diagnostic, including collection of specimen(s) by brushing or washing, when performed (separateprocedure) Diagnosis Code(s): --- Professional --- Z80.0, Family history of malignant neoplasm of digestive organs K64.8, Other hemorrhoids K57.30, Diverticulosis of large intestine without perforation orabscess without bleeding CPT copyright 2017 [employer]. All rights reserved. The codes documented in this report are preliminary and upon pulp mixer reviewmay be revised to meet current compliance requirements. Recognized by the [employer] for promoting quality [...] There has been no suspicious interval change. us Priyanka Quiroz PIPELAYING FITTER IMG MAMMO PROCEDURES Final R esult from Last 3 Months or Most Recently Relevant to Health Maintenance Additional Health Concerns Infection Onset Date Last Indicated MDR gram neg/ESBL Comment:Germ watcher auto flagging. Specimen: URINE, CLEAN VOIDED Site: 12/17/15 Urine E. coli ESBL+ (MDRO) 12/18/2015 [address] [place] [address] [facility] [address] [place] [id number] [place] [address] [facility] Advance Directives For more information, please contact: [phone] * Full Code (Latest Code Status on File) Date Activated Date Inactivated Comments 09/16/2021 11:43 AM 09/16/2021 6:47 PM * Full Code Date Activated Date Inactivated Comments 05/16/2021 4:58 AM 05/16/2021 10:42 PM * Full Code Date Activated Date Inactivated Comments 05/23/2020 9:56 AM 05/23/2020 4:31 PM Care Teams Stained Glass Window Designer Relationship Specialty Start Date End Date Priyanka Quiroz NP [address] [place] [address] PCP - General 03/28/20 Gaston Chowdhury MD [address] [place] [address] Surgeon Orthopedic Surgery 09/16/21
[2024-11-09 10:35] LABS: Lactic Acid Reflex 1.8 mmol/L (0.4-2.0)
[2024-11-09 10:39] LABS: Alanine Aminotransferase 37 U/L (14-59); Alkaline Phosphatase 164 U/L (46-116); Anion Gap 8 mmol/L (4-12); Aspartate Amino Transferase 39 U/L (15-37); Bilirubin,Total 1.1 mg/dL (0.00-1.00); Blood Urea Nitrogen 24 mg/dL (7-18); Calcium 8.4 mg/dL (8.5-10.1); Carbon Dioxide 28 mmol/L (21-32); Chloride 104 mmol/L (98-108); Estimated CRCL calculation 56 ml/min; Estimated Glomerular Filt Rate 48; Glucose 99 mg/dL (70-99); Magnesium 1.5 mg/dL (1.8-2.4); NT Pro B Type Natriuretic Pept 6289 pg/mL (0-125); Osmolality Calculated 294 mOsm/kg (285-295); Potassium 3.6 mmol/L (3.5-5.1); Sodium 140 mmol/L (136-145); Total Protein 6.7 g/dL (6.4-8.2)
[2024-11-09 10:41] LABS: Troponin I 22.9 ng/L (0.00-60.4)
[2024-11-09 10:48] LABS: Influenza A QL RT-PCR Negative (Negative); Influenza B QL RT-PCR Negative (Negative); RSV RNA, RT-PCR Negative (Negative); SARS-CoV-2 RNA PCR Negative (Negative)
--- OUTSIDE RECORDS SUMMARY | 2024-11-09 11:11 | XMS_ITS | Clinical Summary ---
Author Organization [facility] Address [address], [facility] [address] [place] [address] Phone Care Team Providers Care Sheet Metal Erector Name Role Phone SteinerAlbertoPriyankacharlie WATTS CNP Primary Care Provider [phone] Allergies No known active allergies Medications potassium [...] age to complete this topic Insurance MEDICAID [facility] PLAN Care Teams Sheet Metal Erector Relationship Specialty Start Date End Date Priyanka Steiner APRN, ANTON[place] [address] [place] [address] PCP - General Family Medicine 05/22/21
--- OUTSIDE RECORDS SUMMARY | 2024-11-09 11:12 | XMS_ITS | Clinical Summary ---
Author Organization [facility] Address [address] [place] [address] Care Team Providers Care Communication Coordinator Name Role Phone Quiroz, Priyanka Galeas NP Primary Care Provider Gaston Chowdhury MD Unavailable [phone] Allergies Active Allergy Reactions Criticality Noted Date [...] (04/11/2020): Added automatically from request for surgery [id number] Family history of colon cancer 04/11/2020 Overview (04/11/2020): Added automatically from request for surgery [id number] Low back pain 03/27/2020 Multiple joint pain [...] on file Legal Sex Female 8:09 AM AUTOMOBILES SALESPERSON Gender Identity Female 02/20/2023 6:26 AM CDT [...] Comments Blood Pressure 140/98 08/11/2023 7:12 PM AUTOMOBILES SALESPERSON Pulse 113 08/11/2023 7:12 PM AUTOMOBILES SALESPERSON Temperature 36.6 C (97.8 F) 08/11/2023 7:12 PM AUTOMOBILES SALESPERSON Respiratory Rate 18 08/11/2023 7:12 PM AUTOMOBILES SALESPERSON Oxygen Saturation 97% 08/11/2023 7:12 PM AUTOMOBILES SALESPERSON Inhaled Oxygen Concentration - - Weight 103.4 kg (228 lb) 08/11/2023 7:12 PM AUTOMOBILES SALESPERSON Height 162.6 cm (5' 4.02 ) 08/11/2023 7:12 PM CS T Body Mass Index 39.12 08/11/2023 7:12 PM AUTOMOBILES SALESPERSON Plan of Treatment Health Maintenance Due Date [...] this topic Medical Devices Implanted Type Area Hardwood Floor Finisher Device Identifier Shelf Expiration Date Model / Serial / Lot [employer] 6195-1-001 Cement Bone Simplex Gentamicin High Viscosity 40gm - [id number] Implanted:Qty: 1 on 09/16/2021 by Gaston Chowdhury MD at [facility] Left: Knee [employer] 01/14/2023 6195-1-001 / / [id number] [employer] 6195-1-001 Cement Bone Simplex Gentamicin High Viscosity 40gm - [id number] Implanted:Qty: 1 on 09/16/2021 by Gaston Chowdhury MD at [facility] Left: Knee [employer] 01/14/2023 6195-1-001 / / [id number] [employer] [id number] Attune S+ Cement Fix Bearing Knee 5 Baseplate Tibial - [id number] Implanted:Qty: 1 on 09/16/2021 by Gaston Chowdhury MD at [facility] Left: Knee [employer] 07/16/2031 [id number] / / [id number] [employer] [id number] Attune Cemented Posterior Stabilize Knee Left 5 Component Femoral - [id number] Implanted:Qty: 1 on 09/16/2021 by Gaston Chowdhury MD at [facility] Left: Knee [employer] 10/14/2030 [id number] / / [id number] [employer] [id number] Attune 6mm Posterior Stabilize Fix Bearing Knee 5 Insert Tibial - [id number] Implanted:Qty: 1 on 09/16/2021 by Gaston Chowdhury MD at [facility] Left: Knee [employer] 06/16/2026 [id number] / / [id number] [employer] Cement Bone Simplex Gentamicin High Viscosity 40gm 6195-1-001 - [id number] Implanted:Qty: 1 on 01/05/2023 by Gaston Chowdhury MD at [facility] Left: Knee [employer] 04/16/2024 6195-1-001 / / [id number] [employer] Attune 35mm Cemented Medialize Knee Dome Patellar Aox Sterile [id number] - [id number] Implanted:Qty: 1 on 01/05/2023 by Gaston Chowdhury MD at [facility] Left: Knee [employer] 10/15/2027 [id number] / / [id number] Explanted Type Area Hardwood Floor Finisher Device Identifier Shelf Expiration Date Model / Serial / Lot [employer] [id number] Inlay [place] 7fr 24cm Pusher Fluoro Marker Atraumatic Insertion Latex Free - [id number] Implanted:Qty: 1 on 05/16/2021 by Jesus Alberto Muse MD at [facility] Explanted:Qty: 1 on 10/22/2021 Left: Ureter [employer] 12/12/2024 [id number] / / [id number] Procedures Procedure Name Priority Date/Time Associated Diagnosis [...] MD - 05/23/2020 11:09 AM CDT Digestive [facility] Patient Name: Nellie Gr Procedure Date: 05/23/2020 11:09 AM Date of : 1970 Admit Type: Outpatient Age: 50 Gender: Female Attending MD: Segundo Buchanan M.D. Room: [facility] ENDOSCOPY ROOM 1 Note Status: [...] passed under direct vision.The Pediatric Colonoscope PCF-H190L [id number] was introduced through the anus and advanced [...] 11:09 AM Procedure Code(s): --- Professional --- 24716, Colonoscopy, flexible; diagnostic, including collection of specimen(s) by brushing or washing, when performed (separateprocedure) Diagnosis Code(s): --- Professional --- Z80.0, Family history of malignant neoplasm of digestive organs K64.8, Other hemorrhoids K57.30, Diverticulosis of large intestine without perforation orabscess without bleeding CPT copyright 2017 [employer]. All rights reserved. The codes documented in this report are preliminary and upon android ios developer reviewmay be revised to meet current compliance requirements. Recognized by the [employer] for promoting quality [...] MAMMOGRAM BILATERAL W LONG ORDERING HEALTHCARE PROVIDER: PRIAYNKA QUIROZ HISTORY: Routine screening mammography. History of [...] no suspicious interval change. us Priyanka Quiroz WELDER GAS TUNGSTEN ARC IMG MAMMO PROCEDURES Final R esult from Last 3 Months or Most Recently Relevant to Health Maintenance Additional Health Concerns Infection Onset Date Last Indicated MDR gram neg/ESBL Comment:Germ watcher auto flagging. Specimen: URINE, CLEAN VOIDED Site: 12/17/15 Urine E. coli ESBL+ (MDRO) 12/18/2015 [address] [place] [address] [facility] [address] [place] [id number] [place] [address] [facility] Advance Directives For more information, please contact: [phone] * Full Code (Latest Code Status on File) Date Activated Date Inactivated Comments 09/16/2021 11:43 AM 09/16/2021 6:47 PM * Full Code Date Activated Date Inactivated Comments 05/16/2021 4:58 AM 05/16/2021 10:42 PM * Full Code Date Activated Date Inactivated Comments 05/23/2020 9:56 AM 05/23/2020 4:31 PM Care Teams Communication Coordinator Relationship Specialty Start Date End Date Priyanka Quiroz NP [address] [place] [address] PCP - General 03/28/20 Gaston Chowdhury MD [address] [place] [address] Surgeon Orthopedic Surgery 09/16/21
--- OUTSIDE RECORDS SUMMARY | 2024-11-09 11:12 | XMS_ITS | Referral Summary ---
Author Organization [facility] Address [address] [place] [address] Care Team Providers Care Cage Tender Name Role Phone Quiroz, Priyanka Galeas NP Primary Care Provider Gaston Chowdhury MD Unavailable [phone] Allergies Active Allergy Reactions Criticality Noted Date [...] (04/11/2020): Added automatically from request for surgery [id number] Family history of colon cancer 04/11/2020 Overview (04/11/2020): Added automatically from request for surgery [id number] Low back pain 03/27/2020 Multiple joint pain [...] on file Legal Sex Female 8:09 AM SLPS Gender Identity Female 02/20/2023 6:26 AM CDT Sexual Orientation Straight 06/21/2021 4: 03 PM CDT Last Filed Vital Signs Vital Sign Reading Time Taken Comments Blood Pressure 140/98 08/11/2023 7:12 PM SLPS Pulse 113 08/11/2023 7:12 PM SLPS Temperature 36.6 C (97.8 F) 08/11/2023 7:12 PM SLPS Respiratory Rate 18 08/11/2023 7:12 PM SLPS Oxygen Saturation 97% 08/11/2023 7:12 PM SLPS Inhaled Oxygen Concentration - - Weight 103.4 kg (228 lb) 08/11/2023 7:12 PM SLPS Height 162.6 cm (5' 4.02 ) 08/11/2023 7:12 PM CS T Body Mass Index 39.12 08/11/2023 7:12 PM SLPS Plan of Treatment Not on file Medical Devices Implanted Type Area Insurance Checker Device Identifier Shelf Expiration Date Model / Serial / Lot [employer] 6195-1-001 Cement Bone Simplex Gentamicin High Viscosity 40gm - [id number] Implanted:Qty: 1 on 09/16/2021 by Gaston Chowdhury MD at [facility] Left: Knee [employer] 01/14/2023 6195-1-001 / / [id number] [employer] 6195-1-001 Cement Bone Simplex Gentamicin High Viscosity 40gm - [id number] Implanted:Qty: 1 on 09/16/2021 by Gaston Chowdhury MD at [facility] Left: Knee [employer] 01/14/2023 6195-1-001 / / [id number] [employer] [id number] Attune S+ Cement Fix Bearing Knee 5 Baseplate Tibial - [id number] Implanted:Qty: 1 on 09/16/2021 by Gaston Chowdhury MD at [facility] Left: Knee [employer] 07/16/2031 [id number] / / [id number] [employer] [id number] Attune Cemented Posterior Stabilize Knee Left 5 Component Femoral - [id number] Implanted:Qty: 1 on 09/16/2021 by Gaston Chowdhury MD at [facility] Left: Knee [employer] 10/14/2030 [id number] / / [id number] [employer] [id number] Attune 6mm Posterior Stabilize Fix Bearing Knee 5 Insert Tibial - [id number] Implanted:Qty: 1 on 09/16/2021 by Gaston Chowdhury MD at [facility] Left: Knee [employer] 06/16/2026 [id number] / / [id number] [employer] Cement Bone Simplex Gentamicin High Viscosity 40gm 6195-1-001 - [id number] Implanted:Qty: 1 on 01/05/2023 by Gaston Chowdhury MD at [facility] Left: Knee [employer] 04/16/2024 6195-1-001 / / [id number] [employer] Attune 35mm Cemented Medialize Knee Dome Patellar Aox Sterile [id number] - [id number] Implanted:Qty: 1 on 01/05/2023 by Gaston Chowdhury MD at [facility] Left: Knee [employer] 10/15/2027 [id number] / / [id number] Explanted Type Area Insurance Checker Device Identifier Shelf Expiration Date Model / Serial / Lot [employer] [id number] Inlay [place] 7fr 24cm Pusher Fluoro Marker Atraumatic Insertion Latex Free - [id number] Implanted:Qty: 1 on 05/16/2021 by Jesus Alberto Muse MD at [facility] Explanted:Qty: 1 on 10/22/2021 Left: Ureter [employer] 12/12/2024 [id number] / / [id number] Procedures Procedure Name Priority Date/Time Associated Diagnosis [...] MD - 05/23/2020 11:09 AM CDT Digestive [facility] Patient Name: Nellie Gr Procedure Date: 05/23/2020 11:09 AM Date of : 1970 Admit Type: Outpatient Age: 50 Gender: Female Attending MD: Segundo Buchanan M.D. Room: [facility] ENDOSCOPY ROOM 1 Note Status: Finalized Patient [...] passed under direct vision.The Pediatric Colonoscope PCF-H190L [id number] was introduced through the anus and advanced [...] 11:09 AM Procedure Code(s): --- Professional --- 64580, Colonoscopy, flexible; diagnostic, including collection of specimen(s) by brushing or washing, when performed (separateprocedure) Diagnosis Code(s): --- Professional --- Z80.0, Family history of malignant neoplasm of digestive organs K64.8, Other hemorrhoids K57.30, Diverticulosis of large intestine without perforation orabscess without bleeding CPT copyright 2017 [employer]. All rights reserved. The codes documented in this report are preliminary and upon crimp setter reviewmay be revised to meet current compliance requirements. Recognized by the [place] [employer] for promoting quality [...] been no suspicious interval change. Priyanka Quiroz BOAT DESIGNER IMG MAMMO PROCEDURES Final R esult from Last 3 Months or Most Recently Relevant to Health Maintenance Additional Health Concerns Infection Onset Date Last Indicated MDR gram neg/ESBL Comment:Germ watcher auto flagging. Specimen: URINE, CLEAN VOIDED Site: 12/17/15 Urine E. coli ESBL+ (MDRO) 12/18/2015 [address] [place] [address] [facility] Advance Directives For more information, please contact: [phone] * Full Code (Latest Code Status on File) Date Activated Date Inactivated Comments 09/16/2021 11:43 AM 09/16/2021 6:47 PM * Full Code Date Activated Date Inactivated Comments 05/16/2021 4:58 AM 05/16/2021 10:42 PM * Full Code Date Activated Date Inactivated Comments 05/23/2020 9:56 AM 05/23/2020 4:31 PM Care Teams Cage Tender Relationship Specialty Start Date End Date Priyanka Quiroz NP [address] [place] [address] PCP - General 03/28/20 Gaston hCowdhury MD [address] [place] [address] Surgeon Orthopedic Surgery 09/16/21
[2024-11-09] MEDS: MAGNESIUM SULF 2 GM/WATER 50ML 2 GM/50 ML BAG IVPB (11:24)
== END 2024-11-09 13:30 | disposition home or self-care (01) ==
PROVIDERS: Emergency Provider Internal Medicine Critical Care Medicine; PCP Family Medicine
DX: I50.9 Heart failure, unspecified (principal); Z20.822 Contact with and (suspected) exposure to COVID-19
CPT/HCPCS: 36415; 71045; 71275; 80053; 83605; 83735; 83880; 84443; 84484; 85025; 87637; 93005; 96365; 96366; 99284; J3475; Q9967

== ENCOUNTER 2024-11-11 15:01 | Outpatient (CLI) | payer OTHER, SELFPAY ==
--- OUTSIDE RECORDS SUMMARY | 2024-11-11 15:04 | XMS_ITS | Clinical Summary ---
Author Organization [facility] Address [address], [facility] [address] [place] [address] Phone Care Team Providers Care Senior Contracts Administrator Name Role Phone SteinerAlbertoPriyankacharlie WATTS CNP Primary Care Provider [phone] Allergies No known active allergies Medications potassium [...] age to complete this topic Insurance MEDICAID [facility] PLAN Care Teams Senior Contracts Administrator Relationship Specialty Start Date End Date Priyanka Steiner APRN, [place] [address] [place] [address] PCP - General Family Medicine 05/22/21
--- OUTSIDE RECORDS SUMMARY | 2024-11-11 15:04 | XMS_ITS | Clinical Summary ---
Author Organization [facility] Address [address] [place] [address] Care Team Providers Care Automotive Vehicle Inspector Name Role Phone Quiroz, Priyanka Galeas NP Primary Care Provider [phone] Gaston Chowdhury MD Unavailable [phone] Allergies Active Allergy Reactions Criticality Noted Date [...] (04/11/2020): Added automatically from request for surgery [id number] Family history of colon cancer 04/11/2020 Overview (04/11/2020): Added automatically from request for surgery [id number] Low back pain 03/27/2020 Multiple joint pain [...] on file Legal Sex Female 8:09 AM BOX STACKER Gender Identity Female 02/20/2023 6:26 AM CDT [...] Comments Blood Pressure 140/98 08/11/2023 7:12 PM BOX STACKER Pulse 113 08/11/2023 7:12 PM BOX STACKER Temperature 36.6 C (97.8 F) 08/11/2023 7:12 PM BOX STACKER Respiratory Rate 18 08/11/2023 7:12 PM BOX STACKER Oxygen Saturation 97% 08/11/2023 7:12 PM BOX STACKER Inhaled Oxygen Concentration - - Weight 103.4 kg (228 lb) 08/11/2023 7:12 PM BOX STACKER Height 162.6 cm (5' 4.02 ) 08/11/2023 7:12 PM CS T Body Mass Index 39.12 08/11/2023 7:12 PM BOX STACKER Plan of Treatment Health Maintenance Due Date [...] this topic Medical Devices Implanted Type Area Radio Tower Technician Device Identifier Shelf Expiration Date Model / Serial / Lot [employer] 6195-1-001 Cement Bone Simplex Gentamicin High Viscosity 40gm - [id number] Implanted:Qty: 1 on 09/16/2021 by Gaston Chowdhury MD at [facility] Left: Knee [employer] 01/14/2023 6195-1-001 / / [id number] [employer] 6195-1-001 Cement Bone Simplex Gentamicin High Viscosity 40gm - [id number] Implanted:Qty: 1 on 09/16/2021 by Gaston Chowdhury MD at [facility] Left: Knee [employer] 01/14/2023 6195-1-001 / / [id number] [employer] [id number] Attune S+ Cement Fix Bearing Knee 5 Baseplate Tibial - [id number] Implanted:Qty: 1 on 09/16/2021 by Gaston Chowdhury MD at [facility] Left: Knee [employer] 07/16/2031 [id number] / / [id number] [employer] [id number] Attune Cemented Posterior Stabilize Knee Left 5 Component Femoral - [id number] Implanted:Qty: 1 on 09/16/2021 by Gaston Chowdhury MD at [facility] Left: Knee [employer] 10/14/2030 [id number] / / [id number] [employer] [id number] Attune 6mm Posterior Stabilize Fix Bearing Knee 5 Insert Tibial - [id number] Implanted:Qty: 1 on 09/16/2021 by Gaston Chowdhury MD at [facility] Left: Knee [employer] 06/16/2026 [id number] / / [id number] [employer] Cement Bone Simplex Gentamicin High Viscosity 40gm 6195-1-001 - [id number] Implanted:Qty: 1 on 01/05/2023 by Gaston Chowdhury MD at [facility] Left: Knee [employer] 04/16/2024 6195-1-001 / / [id number] [employer] Attune 35mm Cemented Medialize Knee Dome Patellar Aox Sterile [id number] - [id number] Implanted:Qty: 1 on 01/05/2023 by Gaston Chowdhury MD at [facility] Left: Knee [employer] 10/15/2027 [id number] / / [id number] Explanted Type Area Radio Tower Technician Device Identifier Shelf Expiration Date Model / Serial / Lot [employer] [id number] Inlay [place] 7fr 24cm Pusher Fluoro Marker Atraumatic Insertion Latex Free - [id number] Implanted:Qty: 1 on 05/16/2021 by Jesus Alberto Muse MD at [facility] Explanted:Qty: 1 on 10/22/2021 Left: Ureter [employer] 12/12/2024 [id number] / / [id number] Procedures Procedure Name Priority Date/Time Associated Diagnosis [...] MD - 05/23/2020 11:09 AM CDT Digestive [facility] Patient Name: Nellie Gr Procedure Date: 05/23/2020 11:09 AM Date of : 1970 Admit Type: Outpatient Age: 50 Gender: Female Attending MD: Segundo Buchanan M.D. Room: [facility] ENDOSCOPY ROOM 1 Note Status: [...] passed under direct vision.The Pediatric Colonoscope PCF-H190L [id number] was introduced through the anus and advanced [...] 11:09 AM Procedure Code(s): --- Professional --- 76481, Colonoscopy, flexible; diagnostic, including collection of specimen(s) by brushing or washing, when performed (separateprocedure) Diagnosis Code(s): --- Professional --- Z80.0, Family history of malignant neoplasm of digestive organs K64.8, Other hemorrhoids K57.30, Diverticulosis of large intestine without perforation orabscess without bleeding CPT copyright 2017 [employer] [employer]. All rights reserved. The codes documented in this report are preliminary and upon risk management professional reviewmay be revised to meet current compliance requirements. Recognized by the [place] [employer] for promoting quality [...] no suspicious interval change. us Priyanka Quiroz BINDING DYER IMG MAMMO PROCEDURES Final R esult from Last 3 Months or Most Recently Relevant to Health Maintenance Additional Health Concerns Infection Onset Date Last Indicated MDR gram neg/ESBL Comment:Germ watcher auto flagging. Specimen: URINE, CLEAN VOIDED Site: 12/17/15 Urine E. coli ESBL+ (MDRO) 12/18/2015 [address] [place] [address] [facility] [address] [place] [id number] [place] [address] [facility] Advance Directives For more information, please contact: [phone] * Full Code (Latest Code Status on File) Date Activated Date Inactivated Comments 09/16/2021 11:43 AM 09/16/2021 6:47 PM * Full Code Date Activated Date Inactivated Comments 05/16/2021 4:58 AM 05/16/2021 10:42 PM * Full Code Date Activated Date Inactivated Comments 05/23/2020 9:56 AM 05/23/2020 4:31 PM Care Teams Automotive Vehicle Inspector Relationship Specialty Start Date End Date Priyanka Quiroz NP [address] [place] [address] PCP - General 03/28/20 Gaston Chowdhury MD [address] [place] [address] Surgeon Orthopedic Surgery 09/16/21
--- OUTSIDE RECORDS SUMMARY | 2024-11-11 15:04 | XMS_ITS | Referral Summary ---
Author Organization [facility] Address [address] [place] [address] Care Team Providers Care Bar Waiter/Waitress Name Role Phone Quiroz, Priyanka Galeas NP Primary Care Provider [phone] Gaston Chowdhury MD Unavailable Allergies Active Allergy Reactions Criticality Noted Date [...] (04/11/2020): Added automatically from request for surgery [id number] Family history of colon cancer 04/11/2020 Overview (04/11/2020): Added automatically from request for surgery [id number] Low back pain 03/27/2020 Multiple joint pain [...] on file Legal Sex Female 8:09 AM KITCHEN MANAGER Gender Identity Female 02/20/2023 6:26 AM CDT Sexual Orientation Straight 06/21/2021 4: 03 PM CDT Last Filed Vital Signs Vital Sign Reading Time Taken Comments Blood Pressure 140/98 08/11/2023 7:12 PM KITCHEN MANAGER Pulse 113 08/11/2023 7:12 PM KITCHEN MANAGER Temperature 36.6 C (97.8 F) 08/11/2023 7:12 PM KITCHEN MANAGER Respiratory Rate 18 08/11/2023 7:12 PM KITCHEN MANAGER Oxygen Saturation 97% 08/11/2023 7:12 PM KITCHEN MANAGER Inhaled Oxygen Concentration - - Weight 103.4 kg (228 lb) 08/11/2023 7:12 PM KITCHEN MANAGER Height 162.6 cm (5' 4.02 ) 08/11/2023 7:12 PM CS T Body Mass Index 39.12 08/11/2023 7:12 PM KITCHEN MANAGER Plan of Treatment Not on file Medical Devices Implanted Type Area Concrete Paving Machine Operator Device Identifier Shelf Expiration Date Model / Serial / Lot [employer] 6195-1-001 Cement Bone Simplex Gentamicin High Viscosity 40gm - [id number] Implanted:Qty: 1 on 09/16/2021 by Gaston Chowdhury MD at [facility] Left: Knee [employer] 01/14/2023 6195-1-001 / / [id number] [employer] 6195-1-001 Cement Bone Simplex Gentamicin High Viscosity 40gm - [id number] Implanted:Qty: 1 on 09/16/2021 by Gaston Chowdhury MD at [facility] Left: Knee [employer] 01/14/2023 6195-1-001 / / [id number] [employer] [id number] Attune S+ Cement Fix Bearing Knee 5 Baseplate Tibial - [id number] Implanted:Qty: 1 on 09/16/2021 by Gaston Chowdhury MD at [facility] Left: Knee [employer] 07/16/2031 [id number] / / [id number] [employer] [id number] Attune Cemented Posterior Stabilize Knee Left 5 Component Femoral - [id number] Implanted:Qty: 1 on 09/16/2021 by Gaston Chowdhury MD at [facility] Left: Knee [employer] 10/14/2030 [id number] / / [id number] [employer] [id number] Attune 6mm Posterior Stabilize Fix Bearing Knee 5 Insert Tibial - [id number] Implanted:Qty: 1 on 09/16/2021 by Gaston Chowdhury MD at [facility] Left: Knee [employer] 06/16/2026 [id number] / / [id number] [employer] Cement Bone Simplex Gentamicin High Viscosity 40gm 6195-1-001 - [id number] Implanted:Qty: 1 on 01/05/2023 by Gaston Chowdhury MD at [facility] Left: Knee [employer] 04/16/2024 6195-1-001 / / [id number] [employer] Attune 35mm Cemented Medialize Knee Dome Patellar Aox Sterile [id number] - [id number] Implanted:Qty: 1 on 01/05/2023 by Gaston Chowdhury MD at [facility] Left: Knee [employer] 10/15/2027 [id number] / / [id number] Explanted Type Area Concrete Paving Machine Operator Device Identifier Shelf Expiration Date Model / Serial / Lot [employer] [id number] Inlay [place] 7fr 24cm Pusher Fluoro Marker Atraumatic Insertion Latex Free - [id number] Implanted:Qty: 1 on 05/16/2021 by Jesus Alberto Muse MD at [facility] Explanted:Qty: 1 on 10/22/2021 Left: Ureter [employer] 12/12/2024 [id number] / / [id number] Procedures Procedure Name Priority Date/Time Associated Diagnosis [...] MD - 05/23/2020 11:09 AM CDT Digestive [facility] Patient Name: Nellie Gr Procedure Date: 05/23/2020 11:09 AM Date of : 1970 Admit Type: Outpatient Age: 50 Gender: Female Attending MD: Segundo Buchanan M.D. Room: [facility] ENDOSCOPY ROOM 1 Note Status: Finalized Patient [...] passed under direct vision.The Pediatric Colonoscope PCF-H190L [id number] was introduced through the anus and advanced [...] 11:09 AM Procedure Code(s): --- Professional --- 97766, Colonoscopy, flexible; diagnostic, including collection of specimen(s) by brushing or washing, when performed (separateprocedure) Diagnosis Code(s): --- Professional --- Z80.0, Family history of malignant neoplasm of digestive organs K64.8, Other hemorrhoids K57.30, Diverticulosis of large intestine without perforation orabscess without bleeding CPT copyright 2017 [place] [employer]. All rights reserved. The codes documented in this report are preliminary and upon room service associate reviewmay be revised to meet current compliance requirements. Recognized by the [place] [employer] G[employer] for promoting quality [...] been no suspicious interval change. Priyanka Quiroz WINDOW SHADE RING COVERER IMG MAMMO PROCEDURES Final R esult from Last 3 Months or Most Recently Relevant to Health Maintenance Additional Health Concerns Infection Onset Date Last Indicated MDR gram neg/ESBL Comment:Germ watcher auto flagging. Specimen: URINE, CLEAN VOIDED Site: 12/17/15 Urine E. coli ESBL+ (MDRO) 12/18/2015 [address] [place] [address] [facility] Advance Directives For more information, please contact: [phone] * Full Code (Latest Code Status on File) Date Activated Date Inactivated Comments 09/16/2021 11:43 AM 09/16/2021 6:47 PM * Full Code Date Activated Date Inactivated Comments 05/16/2021 4:58 AM 05/16/2021 10:42 PM * Full Code Date Activated Date Inactivated Comments 05/23/2020 9:56 AM 05/23/2020 4:31 PM Care Teams Bar Waiter/Waitress Relationship Specialty Start Date End Date Priyanka Quiroz NP [address] [place] [address] PCP - General 03/28/20 Gaston Chowdhury MD [address] [place] [address] Surgeon Orthopedic Surgery 09/16/21
[2024-11-11 15:12] LABS: Basophils Absolute Auto 0.09 K/mm3 (0.00-0.10); Basophils Percent Auto 1.1 % (0.0-1.0); Eosinophils Absolute Auto 0.32 K/mm3 (0.02-0.50); Hematocrit 42.7 % (35.0-49.0); Hemoglobin 13.3 g/dL (12.0-15.0); Immature Granulocyte Absolute 0.02 K/mm3 (0.00-0.00); Immature Granulocyte Percent A 0.3 % (0.0-0.0); Lymphocytes Absolute Auto 1.81 K/mm3 (1.10-4.50); Lymphocytes Percent Auto 22.8 % (18.0-42.0); Mean Corpuscular HGB Conc 31.1 g/dL (32-36); Mean Corpuscular Hemoglobin 25.8 pg (27.0-31.0); Mean Corpuscular Volume 82.9 fL (78.0-102.0); Mean Platelet Volume 9.6 fl (9.2-11.8); Monocytes Absolute Auto 0.75 K/mm3 (0.10-0.90); Monocytes Percent Auto 9.4 % (2.0-11.0); Neutrophils Absolute Auto 4.96 K/mm3 (1.70-7.20); Neutrophils Percent Auto 62.4 % (50.0-70.0); Platelet Count Result 253 K/mm3 (150-420); Red Blood Count 5.15 M/mm3 (4.20-5.40)
[2024-11-11 15:39] LABS: Alanine Aminotransferase 49 U/L (14-59); Albumin Level 3.2 g/dL (3.4-5.0); Alkaline Phosphatase 159 U/L (46-116); Anion Gap 9 mmol/L (4-12); Aspartate Amino Transferase 45 U/L (15-37); Bilirubin,Total 0.9 mg/dL (0.00-1.00); Blood Urea Nitrogen 18 mg/dL (7-18); Calcium 8.8 mg/dL (8.5-10.1); Carbon Dioxide 29 mmol/L (21-32); Chloride 103 mmol/L (98-108); Estimated Glomerular Filt Rate 45; Glucose 93 mg/dL (70-99); Magnesium 1.6 mg/dL (1.8-2.4); Osmolality Calculated 293 mOsm/kg (285-295); Potassium 3.5 mmol/L (3.5-5.1); Sodium 141 mmol/L (136-145); Total Protein 6.5 g/dL (6.4-8.2)
== END 2024-11-11 15:02 | disposition home or self-care (01) ==
PROVIDERS: PCP Family Medicine; Visit Provider Family Medicine
DX: J44.9 Chronic obstructive pulmonary disease, unspecified (principal)
CPT/HCPCS: 36415; 80053; 83735; 85025

== ENCOUNTER 2025-01-03 12:43 | Outpatient (CLI) | payer OTHER, SELFPAY ==
--- NOTE | 2025-01-03 12:47 | ECHO_ITS ---
Patient Info Name: Nellie Gr Age: 54 years : 1970 Gender: Female Ht: 64 in Wt: 200 lbs BSA: 2.06 m2 HR: 110 bpm BP: 127 / 100 mmHg Technical Quality: Good Exam Date: 01/03/2025 1:16 PM Patient Status: O Admit Date: 01/03/2025 Exam Type: CA echo dop color flow w con Complete two-dimensional, color flow and Doppler transthoracic echocardiogram is performed with contrast to opacify the left ventricle and to improve the deliniation of the left ventricle endocardial borders. Manager Infrastructure: Poppy Luna Attending Provider: Carolina Dobson Contrast/Agitated Saline Amount: 6.00 ml Summary 1. Definity contrast administered improved wall motion interpretation. 2. Left ventricular chamber dimension is severely enlarged. 3. Left ventricular systolic function is severely reduced, estimated at <15. 4. The left ventricular diastolic function is abnormal. 5. E/e' 15 is elevated. 6. Right ventricular chamber dimension is moderately enlarged. 7. Right ventricular systolic function is severely reduced and with abnormal TAPSE 1.4 cm. 8. Left atrial chamber dimension is severely enlarged. 9. Right atrial chamber dimension is severely enlarged. 10. There is moderate to severe mitral valve regurgitation. 11. There is moderate to severe tricuspid valve regurgitation. 12. Moderate pulmonary hypertension, estimated pulmonary arterial systolic pressure is 53 mmHg. 13. Dilated inferior vena cava with >50% collapse upon inspiration consistent with elevated right atrial pressure, 10 mmHg. Left Ventricle E/e' 15 is elevated. Left ventricular chamber dimension is severely enlarged. Left ventricular systolic function is severely reduced, estimated at <15. The left ventricular diastolic function is abnormal. Definity contrast administered improved wall motion interpretation. Right Ventricle Right ventricular chamber dimension is moderately enlarged. Right ventricular systolic function is severely reduced and with abnormal TAPSE 1.4 cm. Left Atria Left atrial chamber dimension is severely enlarged. Right Atria Right atrial chamber dimension is severely enlarged. Aortic Valve The aortic valve is trileaflet. There is no aortic valve stenosis. There is no aortic valve regurgitation. Pulmonic Valve There is no pulmonic regurgitation. Mitral Valve There is no mitral valve stenosis. There is moderate to severe mitral valve regurgitation. Tricuspid Valve There is moderate to severe tricuspid valve regurgitation. Moderate pulmonary hypertension, estimated pulmonary arterial systolic pressure is 53 mmHg. Pericardium/Pleural There is no pericardial effusion. Inferior Vena Cava Dilated inferior vena cava with >50% collapse upon inspiration consistent with elevated right atrial pressure, 10 mmHg. Aorta The aortic root size at the sinus of Valsalva is normal. Left Ventricular Outflow Tract Name Value Normal LVOT 2D LVOT Diameter 2.0 cm LVOT Doppler LVOT Peak Velocity 81 cm/s LVOT Peak Gradient 3 mmHg LVOT Mean Gradient 1 mmHg LVOT VTI 14 cm LVOT VTI/AV VTI Ratio 1.0 LVOT Stroke Volume 41 ml LVOT CO 4.1 l/min LVOT CI 2.0 l/min/m2 Pulmonic Valve Name Value Normal RVOT Doppler RVOT Peak Velocity 38 cm/s RVOT Peak Gradient 1 mmHg PV Doppler PV Peak Velocity 59 cm/s PV Peak Gradient 1 mmHg Mitral Valve Name Value Normal MV Regurgitation Doppler MR Peak Gradient 108 mmHg MV Diastolic Function MV E Peak Velocity 90 cm/s MV A Peak Velocity 1 cm/s MV E/A 75.1 MV Decel Time (PW) 116 ms MV Annular TDI MV E/e' (Septal) 21.2 MV E/e' (Lateral) 12.3 MV E/e' (Average) 16.8 Tricuspid Valve Name Value Normal TV Regurgitation Doppler TR Peak Velocity 327 cm/s TR Peak Gradient 30 mmHg Estimated PAP/RSVP RA Pressure 10 mmHg <=5 PA Systolic Pressure 53 mmHg <36 RV Systolic Pressure 53 mmHg <36 TV Annular TDI TV Lateral Gudelia s' Velocity 8.4 cm/s >=9.5 Aortic Valve Name Value Normal AV Doppler AV Peak Velocity 84 cm/s AV Peak Gradient 2 mmHg AV Mean Gradient 1 mmHg AV VTI 13 cm AV Area (Cont Eq VTI) 3.1 cm2 >=3.0 AV Area (Cont Eq Freddie) 2.9 cm2 AV DI (Freddie) 0.96 AV Regurgitation 2D LVOT Area 3.0 cm2 Ventricles Name Value Normal LV Dimensions 2D/MM IVS Diastolic Thickness (2D) 0.9 cm 0.6-1.0 LVID Diastole (2D) 6.3 cm 3.8-5.2 LVIW Diastolic Thickness (2D) 1.0 cm 0.6-0.9 LVID Systole (2D) 6.0 cm 2.2-3.5 LVOT Diameter 2.0 cm LV Mass (2D Cubed) 264.43 g 67.00-162.00 LV Mass Index (2D Cubed) 128 g/m2 43-95 Relative Wall Thickness (2D) 0.33 <=0.42 LV Fractional Shortening/Ejection Fraction 2D/MM LV Fractional Shortening (2D) 5 % 27-45 LV EF (2D Teichreneez) 12 % LV Diastolic Volume (4C MOD) 296 ml LV EF (4C MOD) 11 % LV Diastolic Volume (2C MOD) 315 ml LV EF (2C MOD) 14 % LV Diastolic Volume (BP MOD) 313 ml 46-106 LV Diastolic Volume Index (BP MOD) 152 ml/m2 29-61 LV Systolic Volume (BP MOD) 270 ml 14-42 LV Systolic Volume Index (BP MOD) 131 ml/m2 8-24 LV EF (BP MOD) 14 % 54-74 LV Diastolic Length (4C) 9.8 cm LV Systolic Length (4C) 9.0 cm LV Stroke Volume (4C MOD) 33 ml Atria Name Value Normal LA Dimensions LA Volume (4C A-L) 124 ml RA Dimensions RA Systolic Major Post Length (4C) 6.9 cm 2.2-2.8 RA Area (4C) 32.8 cm2 <=18.0 Report Signatures
--- OUTSIDE RECORDS SUMMARY | 2025-01-03 12:47 | XMS_ITS | Clinical Summary ---
Author Organization [facility] Address [address], [facility] [address] [place] [address] Phone Care Team Providers Care Book Store Associate Name Role Phone SteinerAlbertoPriyankacharlie WATTS CNP Primary Care Provider [phone] Allergies No known active allergies Medications potassium [...] age to complete this topic Insurance MEDICAID [facility] PLAN Care Teams Book Store Associate Relationship Specialty Start Date End Date Priyanka Steiner APRN, DIE SINKER [address] [place] [address] PCP - General Family Medicine 05/22/21
--- OUTSIDE RECORDS SUMMARY | 2025-01-03 12:47 | XMS_ITS | Referral Summary ---
Author Organization [facility] Address [address] [place] [address] Care Team Providers Care Security Strategist Name Role Phone Quiroz, Priyanka Galeas NP Primary Care Provider Gaston Chowdhury MD Unavailable [phone] Allergies Active Allergy Reactions Criticality Noted Date [...] (04/11/2020): Added automatically from request for surgery [id number] Family history of colon cancer 04/11/2020 Overview (04/11/2020): Added automatically from request for surgery [id number] Low back pain 03/27/2020 Multiple joint pain [...] on file Legal Sex Female 8:09 AM CHARTER SCHOOL EXECUTIVE DIRECTOR Gender Identity Female 02/20/2023 6:26 AM CDT Sexual Orientation Straight 06/21/2021 4: 03 PM CDT Last Filed Vital Signs Vital Sign Reading Time Taken Comments Blood Pressure 140/98 08/11/2023 7:12 PM CHARTER SCHOOL EXECUTIVE DIRECTOR Pulse 113 08/11/2023 7:12 PM CHARTER SCHOOL EXECUTIVE DIRECTOR Temperature 36.6 C (97.8 F) 08/11/2023 7:12 PM CHARTER SCHOOL EXECUTIVE DIRECTOR Respiratory Rate 18 08/11/2023 7:12 PM CHARTER SCHOOL EXECUTIVE DIRECTOR Oxygen Saturation 97% 08/11/2023 7:12 PM CHARTER SCHOOL EXECUTIVE DIRECTOR Inhaled Oxygen Concentration - - Weight 103.4 kg (228 lb) 08/11/2023 7:12 PM CHARTER SCHOOL EXECUTIVE DIRECTOR Height 162.6 cm (5' 4.02 ) 08/11/2023 7:12 PM CS T Body Mass Index 39.12 08/11/2023 7:12 PM CHARTER SCHOOL EXECUTIVE DIRECTOR Plan of Treatment Not on file Medical Devices Implanted Type Area Instructional Supervisor Device Identifier Shelf Expiration Date Model / Serial / Lot [employer] 6195-1-001 Cement Bone Simplex Gentamicin High Viscosity 40gm - [id number] Implanted:Qty: 1 on 09/16/2021 by Gaston Chowdhury MD at [facility] Left: Knee [employer] 01/14/2023 6195-1-001 / / [id number] [employer] 6195-1-001 Cement Bone Simplex Gentamicin High Viscosity 40gm - [id number] Implanted:Qty: 1 on 09/16/2021 by Gaston Chowdhury MD at [facility] Left: Knee [employer] 01/14/2023 6195-1-001 / / [id number] [employer] [id number] Attune S+ Cement Fix Bearing Knee 5 Baseplate Tibial - [id number] Implanted:Qty: 1 on 09/16/2021 by Gaston Chowdhury MD at [facility] Left: Knee [employer] 07/16/2031 [id number] / / [id number] [employer] [id number] Attune Cemented Posterior Stabilize Knee Left 5 Component Femoral - [id number] Implanted:Qty: 1 on 09/16/2021 by Gaston Chowdhury MD at [facility] Left: Knee [employer] 10/14/2030 [id number] / / [id number] [employer] [id number] Attune 6mm Posterior Stabilize Fix Bearing Knee 5 Insert Tibial - [id number] Implanted:Qty: 1 on 09/16/2021 by Gaston Chowdhury MD at [facility] Left: Knee [employer] 06/16/2026 [id number] / / [id number] [employer] Cement Bone Simplex Gentamicin High Viscosity 40gm 6195-1-001 - [id number] Implanted:Qty: 1 on 01/05/2023 by Gaston Chowdhury MD at [facility] Left: Knee [employer] 04/16/2024 6195-1-001 / / [id number] [employer] Attune 35mm Cemented Medialize Knee Dome Patellar Aox Sterile [id number] - [id number] Implanted:Qty: 1 on 01/05/2023 by Gaston Chowdhury MD at [facility] Left: Knee [employer] 10/15/2027 [id number] / / [id number] Explanted Type Area Instructional Supervisor Device Identifier Shelf Expiration Date Model / Serial / Lot [employer] [id number] Inlay Candler-[place]cafee 7fr 24cm Pusher Fluoro Marker Atraumatic Insertion Latex Free - [id number] Implanted:Qty: 1 on 05/16/2021 by Jesus Alberto Muse MD at [facility] Explanted:Qty: 1 on 10/22/2021 Left: Ureter [employer] 12/12/2024 [id number] / / [id number] Procedures Procedure Name Priority Date/Time Associated Diagnosis [...] MD - 05/23/2020 11:09 AM CDT Digest[facility] Patient Name: Nellie Gr Procedure Date: 05/23/2020 11:09 AM Date of : 1970 Admit Type: Outpatient Age: 50 Gender: Female Attending MD: Segundo Buchanan M.D. Room: [facility] ENDOSCOPY ROOM 1 Note Status: [...] passed under direct vision.The Pediatric Colonoscope PCF-H190L [id number] was introduced through the anus and advanced [...] 11:09 AM Procedure Code(s): --- Professional --- 81475, Colonoscopy, flexible; diagnostic, including collection of specimen(s) by brushing or washing, when performed (separateprocedure) Diagnosis Code(s): --- Professional --- Z80.0, Family history of malignant neoplasm of digestive organs K64.8, Other hemorrhoids K57.30, Diverticulosis of large intestine without perforation orabscess without bleeding CPT copyright 2017 [employer]. All rights reserved. The codes documented in this report are preliminary and upon certified professional coder reviewmay be revised to meet current compliance requirements. Recognized by the [place] [employer] for promoting quality [...] been no suspicious interval change. Priyanka Quiroz [employer] AND [employer] BUTCHER IMG MAMMO PROCEDURES Final R esult from Last 3 Months or Most Recently Relevant to Health Maintenance Additional Health Concerns Infection Onset Date Last Indicated MDR gram neg/ESBL Comment:Germ watcher auto flagging. Specimen: URINE, CLEAN VOIDED Site: 12/17/15 Urine E. coli ESBL+ (MDRO) 12/18/2015 [address] [place] [address] [facility] Advance Directives For more information, please contact: [phone] * Full Code (Latest Code Status on File) Date Activated Date Inactivated Comments 09/16/2021 11:43 AM 09/16/2021 6:47 PM * Full Code Date Activated Date Inactivated Comments 05/16/2021 4:58 AM 05/16/2021 10:42 PM * Full Code Date Activated Date Inactivated Comments 05/23/2020 9:56 AM 05/23/2020 4:31 PM Care Teams Security Strategist Relationship Specialty Start Date End Date Priyanka Quiroz NP [address] [place] [address] PCP - General 03/28/20 Gaston Chowdhury MD [address] [place] [address] Surgeon Orthopedic Surgery 09/16/21
--- OUTSIDE RECORDS SUMMARY | 2025-01-03 12:47 | XMS_ITS | Clinical Summary ---
Author Organization [facility] Address [address] [place] [address] Care Team Providers Care Batch Still Operator Name Role Phone Quiroz, Priyanka Galeas NP Primary Care Provider Gaston Chowdhury MD Unavailable [phone] Allergies Active Allergy Reactions Criticality Noted Date [...] (04/11/2020): Added automatically from request for surgery [id number] Family history of colon cancer 04/11/2020 Overview (04/11/2020): Added automatically from request for surgery [id number] Low back pain 03/27/2020 Multiple joint pain [...] on file Legal Sex Female 8:09 AM INDUSTRIAL RELATIONS SPECIALIST Gender Identity Female 02/20/2023 6:26 AM CDT [...] Comments Blood Pressure 140/98 08/11/2023 7:12 PM INDUSTRIAL RELATIONS SPECIALIST Pulse 113 08/11/2023 7:12 PM INDUSTRIAL RELATIONS SPECIALIST Temperature 36.6 C (97.8 F) 08/11/2023 7:12 PM INDUSTRIAL RELATIONS SPECIALIST Respiratory Rate 18 08/11/2023 7:12 PM INDUSTRIAL RELATIONS SPECIALIST Oxygen Saturation 97% 08/11/2023 7:12 PM INDUSTRIAL RELATIONS SPECIALIST Inhaled Oxygen Concentration - - Weight 103.4 kg (228 lb) 08/11/2023 7:12 PM INDUSTRIAL RELATIONS SPECIALIST Height 162.6 cm (5' 4.02 ) 08/11/2023 7:12 PM CS T Body Mass Index 39.12 08/11/2023 7:12 PM INDUSTRIAL RELATIONS SPECIALIST Plan of Treatment Health Maintenance Due Date Last Done Comments Depression Screening 1970 Hepatitis C Screening 1970 DTaP/Tdap/Td Vaccine (1 - Tdap) 1981 Hepatitis B Screening 1988 Regular Well Visit/Exam 18-64 1988 Breast Cancer Screening-Mammogram 05/16/2021 05/16/2020, 04/11/2013 Covid-19 Vaccine ( season) 2024 05/08/2022, 04/20/2021, 11/01/2020, Additional history exists Influenza Vaccine (Season Ended) 2025 05/08/2022, 06/28/2021, 05/18/2021, Additional history exists Colon Cancer Screening-Colonoscopy 05/23/2030 05/23/2020 Colon Cancer Screening-CT Colonography Discontinued 05/23/2020 Colon Cancer Screening-DNA Stool Discontinued 05/23/2020 Colon Cancer Screening-FIT Discontinued 05/23/2020 Colon Cancer Screening-Sigmoidoscopy Discontinued 05/23/2020 Zoster Vaccine Completed 12/18/2021, 07/01/2021 Pneumococcal vaccine <65 Aged Out No longer eligible based on patient's age to complete this topic Medical Devices Implanted Type Area Customs Investigator Device Identifier Shelf Expiration Date Model / Serial / Lot [employer] 6195-1-001 Cement Bone Simplex Gentamicin High Viscosity 40gm - [id number] Implanted:Qty: 1 on 09/16/2021 by Gaston Chowdhury MD at [facility] Left: Knee [employer] 01/14/2023 6195-1-001 / / [id number] [employer] 6195-1-001 Cement Bone Simplex Gentamicin High Viscosity 40gm - [id number] Implanted:Qty: 1 on 09/16/2021 by Gaston Chowdhury MD at [facility] Left: Knee [employer] 01/14/2023 6195-1-001 / / [id number] [employer] [id number] Attune S+ Cement Fix Bearing Knee 5 Baseplate Tibial - [id number] Implanted:Qty: 1 on 09/16/2021 by Gaston Chowdhury MD at [facility] Left: Knee [employer] 07/16/2031 [id number] / / [id number] [employer] [id number] Attune Cemented Posterior Stabilize Knee Left 5 Component Femoral - [id number] Implanted:Qty: 1 on 09/16/2021 by Gaston Chowdhury MD at [facility] Left: Knee [employer] 10/14/2030 [id number] / / [id number] [employer] [id number] Attune 6mm Posterior Stabilize Fix Bearing Knee 5 Insert Tibial - [id number] Implanted:Qty: 1 on 09/16/2021 by Gaston Chowdhury MD at [facility] Left: Knee [employer] 06/16/2026 [id number] / / [id number] [employer] Cement Bone Simplex Gentamicin High Viscosity 40gm 6195-1-001 - [id number] Implanted:Qty: 1 on 01/05/2023 by Gaston Chowdhury MD at [facility] Left: Knee [employer] 04/16/2024 6195-1-001 / / [id number] [employer] Attune 35mm Cemented Medialize Knee Dome Patellar Aox Sterile [id number] - [id number] Implanted:Qty: 1 on 01/05/2023 by Gaston Chowdhury MD at [facility] Left: Knee [employer] 10/15/2027 [id number] / / [id number] Explanted Type Area Customs Investigator Device Identifier Shelf Expiration Date Model / Serial / Lot [employer] [id number] Inlay Mazon 7fr 24cm Pusher Fluoro Marker Atraumatic Insertion Latex Free - [id number] Implanted:Qty: 1 on 05/16/2021 by Jesus Alberto Muse MD at [facility] Explanted:Qty: 1 on 10/22/2021 Left: Ureter [employer] 12/12/2024 [id number] / / [id number] Procedures Procedure Name Priority Date/Time Associated Diagnosis [...] 05/23/2020 11:09 AM CDT [facility] Patient Name: Nellie Gr Procedure Date: 05/23/2020 11:09 AM Date of : 1970 Admit Type: Outpatient Age: 50 Gender: Female Attending MD: Segundo Buchanan M.D. Room: [facility] ENDOSCOPY ROOM 1 Note Status: Finalized [...] passed under direct vision.The Pediatric Colonoscope PCF-H190L [id number] was introduced through the anus and advanced [...] 11:09 AM Procedure Code(s): --- Professional --- 51003, Colonoscopy, flexible; diagnostic, including collection of specimen(s) by brushing or washing, when performed (separateprocedure) Diagnosis Code(s): --- Professional --- Z80.0, Family history of malignant neoplasm of digestive organs K64.8, Other hemorrhoids K57.30, Diverticulosis of large intestine without perforation orabscess without bleeding CPT copyright 2017 [employer] [employer]. All rights reserved. The codes documented in this report are preliminary and upon soaking room operator reviewmay be revised to meet current compliance requirements. Recognized by the [place] [employer] for promoting quality [...] no suspicious interval change. us Priyanka Quiroz RUBBER [employer] SHOES REPAIRER IMG MAMMO PROCEDURES Final R esult from Last 3 Months or Most Recently Relevant to Health Maintenance Additional Health Concerns Infection Onset Date Last Indicated MDR gram neg/ESBL Comment:Germ watcher auto flagging. Specimen: URINE, CLEAN VOIDED Site: 12/17/15 Urine E. coli ESBL+ (MDRO) 12/18/2015 [address] [place] [address] [facility] [address] [place] [id number] [place] [address] [facility] Advance Directives For more information, please contact: [phone] * Full Code (Latest Code Status on File) Date Activated Date Inactivated Comments 09/16/2021 11:43 AM 09/16/2021 6:47 PM * Full Code Date Activated Date Inactivated Comments 05/16/2021 4:58 AM 05/16/2021 10:42 PM * Full Code Date Activated Date Inactivated Comments 05/23/2020 9:56 AM 05/23/2020 4:31 PM Care Teams Batch Still Operator Relationship Specialty Start Date End Date Priyanka Quiroz NP [address] [place] [address] PCP - General 03/28/20 Gaston Chowdhury MD [address] [place] [address] Surgeon Orthopedic Surgery 09/16/21
== END 2025-01-03 12:44 | disposition home or self-care (01) ==
PROVIDERS: PCP Family Medicine; Visit Provider Nurse Practitioner Family
DX: I50.9 Heart failure, unspecified (principal); J44.9 Chronic obstructive pulmonary disease, unspecified; I27.20 Pulmonary hypertension, unspecified; I08.1 Rheumatic disorders of both mitral and tricuspid valves; R93.1 Abnormal findings on diagnostic imaging of heart and coronary circulation
CPT/HCPCS: C8929

== ENCOUNTER 2025-01-10 14:29 | Outpatient (CLI) | payer OTHER, SELFPAY ==
--- OUTSIDE RECORDS SUMMARY | 2025-01-10 14:33 | XMS_ITS | Clinical Summary ---
Author Organization [facility] Address [address], [facility] [address] [place] [address] Phone Care Team Providers Care Flap Maker Name Role Phone SteinerAlbertoPriyankacharlie WATTS CNP Primary Care Provider [phone] Allergies No known active allergies Medications potassium [...] 3:00 PM CDT Height 162.6 cm (5' 4) 05/22/2021 3:00 PM CDT Body Mass Index [...] age to complete this topic Insurance MEDICAID [facility] PLAN Care Teams Flap Maker Relationship Specialty Start Date End Date Priyanka Steiner APRN, INFORMATION CLERK CASHIER [address] [place] [address] PCP - General Family Medicine 05/22/21
--- OUTSIDE RECORDS SUMMARY | 2025-01-10 14:33 | XMS_ITS | Referral Summary ---
Author Organization [facility] Address [address] [place] [address] Care Team Providers Care On Site Coordinator Name Role Phone Gaston Chowdhury MD Unavailable [phone] Lenin Posadas DO Primary Care Provider Encounters Date Type Department Care Team Description 01/05/2025 Telephone [facility] Medical Group Cardiology [address] [place] [address] Tawana Mcgee MA Referral from PCP 01/04/2025 Telephone [facility] Medical [facility] Card[facility] [address] [place] [address] Tawana Mcgee MA Scheduling Appointments from Last 3 Months Allergies Active Allergy Reactions Criticality Noted Date [...] (04/11/2020): Added automatically from request for surgery [id number] Family history of colon cancer 04/11/2020 Overview (04/11/2020): Added automatically from request for surgery [id number] Low back pain 03/27/2020 Multiple joint pain [...] on file Legal Sex Female 8:09 AM PRIVATE DUTY AIDE Gender Identity Female 02/20/2023 6:26 AM CDT Sexual Orientation Straight 06/21/2021 4: 03 PM CDT Last Filed Vital Signs Vital Sign Reading Time Taken Comments Blood Pressure 140/98 08/11/2023 7:12 PM PRIVATE DUTY AIDE Pulse 113 08/11/2023 7:12 PM PRIVATE DUTY AIDE Temperature 36.6 C (97.8 F) 08/11/2023 7:12 PM PRIVATE DUTY AIDE Respiratory Rate 18 08/11/2023 7:12 PM PRIVATE DUTY AIDE Oxygen Saturation 97% 08/11/2023 7:12 PM PRIVATE DUTY AIDE Inhaled Oxygen Concentration - - Weight 103.4 kg (228 lb) 08/11/2023 7:12 PM PRIVATE DUTY AIDE Height 162.6 cm (5' 4.02) 08/11/2023 7:12 PM CS T Body Mass Index 39.12 08/11/2023 7:12 PM PRIVATE DUTY AIDE Plan of Treatment Not on file Medical Devices Implanted Type Area Fruit Coordinator Device Identifier Shelf Expiration Date Model / Serial / Lot [employer] 6195-1-001 Cement Bone Simplex Gentamicin High Viscosity 40gm - [id number] Implanted:Qty: 1 on 09/16/2021 by Gaston Chowdhury MD at [facility] Left: Knee [employer] 01/14/2023 6195-1-001 / / [id number] [employer] 6195-1-001 Cement Bone Simplex Gentamicin High Viscosity 40gm - [id number] Implanted:Qty: 1 on 09/16/2021 by Gaston Chowdhury MD at [facility] Left: Knee [employer] 01/14/2023 6195-1-001 / / [id number] [employer] [id number] Attune S+ Cement Fix Bearing Knee 5 Baseplate Tibial - [id number] Implanted:Qty: 1 on 09/16/2021 by Gaston Chowdhury MD at [facility] Left: Knee [employer] 07/16/2031 [id number] / / [id number] [employer] [id number] Attune Cemented Posterior Stabilize Knee Left 5 Component Femoral - [id number] Implanted:Qty: 1 on 09/16/2021 by Gaston Chowdhury MD at [facility] Left: Knee [employer] 10/14/2030 [id number] / / [id number] [employer] [id number] Attune 6mm Posterior Stabilize Fix Bearing Knee 5 Insert Tibial - [id number] Implanted:Qty: 1 on 09/16/2021 by Gaston Chowdhury MD at [facility] Left: Knee [employer] 06/16/2026 [id number] / / [id number] [employer] Cement Bone Simplex Gentamicin High Viscosity 40gm 6195-1-001 - [id number] Implanted:Qty: 1 on 01/05/2023 by Gaston Chowdhury MD at [facility] Left: Knee [employer] 04/16/2024 6195-1-001 / / [id number] [employer] Attune 35mm Cemented Medialize Knee Dome Patellar Aox Sterile [id number] - [id number] Implanted:Qty: 1 on 01/05/2023 by Gaston Chowdhury MD at [facility] Left: Knee [employer] 10/15/2027 [id number] / / [id number] Explanted Type Area Fruit Coordinator Device Identifier Shelf Expiration Date Model / Serial / Lot [employer] [id number] Inlay [place] 7fr 24cm Pusher Fluoro Marker Atraumatic Insertion Latex Free - [id number] Implanted:Qty: 1 on 05/16/2021 by Jesus Alberto Muse MD at [facility] Explanted:Qty: 1 on 10/22/2021 Left: Ureter [employer] 12/12/2024 [id number] / / [id number] Procedures Procedure Name Priority Date/Time Associated Diagnosis [...] Buchanan MD - 05/23/2020 11:09 AM CDT [facility] Patient Name: Nellie Gr Procedure Date: 05/23/2020 11:09 AM Date of : 1970 Admit Type: Outpatient Age: 50 Gender: Female Attending MD: Segundo Buchanan M.D. Room: COUNTS INCLUDE 234 BEDS AT [facility] ENDOSCOPY ROOM 1 Note Status: Finalized Patient Profile: This is a 50 year old female. Her grandfather anduncle both had colon cancer. Procedure: Colonoscopy Indications: Colon cancer screening in patient at increased risk: Family history of colorectal cancer in multiple 2nd degree relatives, Last colonoscopy: April 2010 Referring MD: Priyanka Steiner NP Providers: Segundo Buchanan M.D. Impression: - [...] passed under direct vision.The Pediatric Colonoscope PCF-H190L [id number] was introduced through the anus and advanced [...] 11:09 AM Procedure Code(s): --- Professional --- 71332, Colonoscopy, flexible; diagnostic, including collection of specimen(s) by brushing or washing, when performed (separateprocedure) Diagnosis Code(s): --- Professional --- Z80.0, Family history of malignant neoplasm of digestive organs K64.8, Other hemorrhoids K57.30, Diverticulosis of large intestine without perforation orabscess without bleeding CPT copyright 2017 [place]. All rights reserved. The codes documented in this report are preliminary and upon plasma processing technician reviewmay be revised to meet current compliance requirements. Recognized by the [place] [employer] for promoting quality [...] BILATERAL W LONG ORDERING HEALTHCARE PROVIDER: PRIYANKA STEINER HISTORY: Routine screening mammography. History of left [...] has been no suspicious interval change. Priyanka Steiner ELECTRONIC PUBLICATIONS SPECIALIST IMG MAMMO PROCEDURES Final R esult from Last 3 Months or Most Recently Relevant to Health Maintenance Additional Health Concerns Infection Onset Date Last Indicated MDR gram neg/ESBL Comment:Germ watcher auto flagging. Specimen: URINE, CLEAN VOIDED Site: 12/17/15 Urine E. coli ESBL+ (MDRO) 12/18/2015 016 Insurance [facility] Advance Directives For more information, please contact: [phone] * Full Code (Latest Code Status on File) Date Activated Date Inactivated Comments 09/16/2021 11:43 AM 09/16/2021 6:47 PM * Full Code Date Activated Date Inactivated Comments 05/16/2021 4:58 AM 05/16/2021 10:42 PM * Full Code Date Activated Date Inactivated Comments 05/23/2020 9:56 AM 05/23/2020 4:31 PM Care Teams On Site Coordinator Relationship Specialty Start Date End Date Lenin Posadas DO [address] [place] [address] PCP - General Family Medicine 01/04/25 Gaston Chowdhury MD Surgeon Orthopedic Surgery 09/16/21
--- OUTSIDE RECORDS SUMMARY | 2025-01-10 14:33 | XMS_ITS | Clinical Summary ---
Author Organization [facility] Address [address] [place] [address] Care Team Providers Care Security Guard Dispatcher Name Role Phone Gaston Chowdhury MD Unavailable [phone] Lenin Posadas DO Primary Care Provider Allergies Active Allergy Reactions Criticality Noted Date [...] (04/11/2020): Added automatically from request for surgery [id number] Family history of colon cancer 04/11/2020 Overview (04/11/2020): Added automatically from request for surgery [id number] Low back pain 03/27/2020 Multiple joint pain 03/27/2020 Obesity 03/27/2020 History of bariatric surgery 03/27/2020 Other spondylosis with radiculopathy, lumbar reg ion 02/24/2019 Anxiety 02/14/2019 Vitamin B12 deficiency 03/01/2018 Insomnia 11/11/2017 Kidney stone 03/14/2016 Encounters Date Type Department Care Team Description 01/05/2025 Telephone [facility] Medical Group Cardiology [address] [place] [address] Tawana Mcgee MA Referral from PCP 01/04/2025 Telephone [facility] Medical Group Cardiology [address] [place] [address] Tawana Mcgee MA Scheduling Appointments from Last 3 Months Immunizations Immunization Administration Dates Next Due Pfizer [...] on file Legal Sex Female 8:09 AM ACUTE CARE PHYSICIAN Gender Identity Female 02/20/2023 6:26 AM CDT [...] Comments Blood Pressure 140/98 08/11/2023 7:12 PM ACUTE CARE PHYSICIAN Pulse 113 08/11/2023 7:12 PM ACUTE CARE PHYSICIAN Temperature 36.6 C (97.8 F) 08/11/2023 7:12 PM ACUTE CARE PHYSICIAN Respiratory Rate 18 08/11/2023 7:12 PM ACUTE CARE PHYSICIAN Oxygen Saturation 97% 08/11/2023 7:12 PM ACUTE CARE PHYSICIAN Inhaled Oxygen Concentration - - Weight 103.4 kg (228 lb) 08/11/2023 7:12 PM ACUTE CARE PHYSICIAN Height 162.6 cm (5' 4.02) 08/11/2023 7:12 PM CS T Body Mass Index 39.12 08/11/2023 7:12 PM ACUTE CARE PHYSICIAN Plan of Treatment Health Maintenance Due Date [...] this topic Medical Devices Implanted Type Area Glass Cutter Device Identifier Shelf Expiration Date Model / Serial / Lot [employer] 6195-1-001 Cement Bone Simplex Gentamicin High Viscosity 40gm - [id number] Implanted:Qty: 1 on 09/16/2021 by Gaston Chowdhury MD at [facility] Left: Knee [employer] 01/14/2023 6195-1-001 / / [id number] [employer] 6195-1-001 Cement Bone Simplex Gentamicin High Viscosity 40gm - [id number] Implanted:Qty: 1 on 09/16/2021 by Gaston Chowdhury MD at [facility] Left: Knee [employer] 01/14/2023 6195-1-001 / / [id number] [employer] [id number] Attune S+ Cement Fix Bearing Knee 5 Baseplate Tibial - [id number] Implanted:Qty: 1 on 09/16/2021 by Gaston Chowdhury MD at [facility] Left: Knee [employer] 07/16/2031 [id number] / / [id number] [employer] [id number] Attune Cemented Posterior Stabilize Knee Left 5 Component Femoral - [id number] Implanted:Qty: 1 on 09/16/2021 by Gaston Chowdhury MD at [facility] Left: Knee [employer] 10/14/2030 [id number] / / [id number] [employer] [id number] Attune 6mm Posterior Stabilize Fix Bearing Knee 5 Insert Tibial - [id number] Implanted:Qty: 1 on 09/16/2021 by Gaston Chowdhury MD at [facility] Left: Knee [employer] 06/16/2026 [id number] / / [id number] [employer] Cement Bone Simplex Gentamicin High Viscosity 40gm 6195-1-001 - [id number] Implanted:Qty: 1 on 01/05/2023 by Gaston Chowdhury MD at [facility] Left: Knee [employer] 04/16/2024 6195-1-001 / / [id number] [employer] Attune 35mm Cemented Medialize Knee Dome Patellar Aox Sterile [id number] - [id number] Implanted:Qty: 1 on 01/05/2023 by Gaston Chowdhury MD at [facility] Left: Knee [employer] 10/15/2027 [id number] / / [id number] Explanted Type Area Glass Cutter Device Identifier Shelf Expiration Date Model / Serial / Lot [employer] [id number] Inlay [place] 7fr 24cm Pusher Fluoro Marker Atraumatic Insertion Latex Free - [id number] Implanted:Qty: 1 on 05/16/2021 by Jesus Alberto Muse MD at [facility] Explanted:Qty: 1 on 10/22/2021 Left: Ureter [employer] 12/12/2024 [id number] / / [id number] Procedures Procedure Name Priority Date/Time Associated Diagnosis [...] Buchanan MD - 05/23/2020 11:09 AM CDT [facility] Patient Name: Nellie Gr Procedure Date: 05/23/2020 11:09 AM Date of : 1970 Admit Type: Outpatient Age: 50 Gender: Female Attending MD: Segundo Buchanan M.D. Room: [facility] ENDOSCOPY ROOM 1 Note Status: [...] passed under direct vision.The Pediatric Colonoscope PCF-H190L [id number] was introduced through the anus and advanced [...] 11:09 AM Procedure Code(s): --- Professional --- 89950, Colonoscopy, flexible; diagnostic, including collection of specimen(s) by brushing or washing, when performed (separateprocedure) Diagnosis Code(s): --- Professional --- Z80.0, Family history of malignant neoplasm of digestive organs K64.8, Other hemorrhoids K57.30, Diverticulosis of large intestine without perforation orabscess without bleeding CPT copyright 2017 [employer]. All rights reserved. The codes documented in this report are preliminary and upon icing machine operator reviewmay be revised to meet current compliance requirements. Recognized by the [place] [employer] for promoting quality [...] been no suspicious interval change. us Priyanka Steiner NP IMG MAMMO PROCEDURES Final R esult from Last 3 Months or Most Recently Relevant to Health Maintenance Additional Health Concerns Infection Onset Date Last Indicated MDR gram neg/ESBL Comment:Germ watcher auto flagging. Specimen: URINE, CLEAN VOIDED Site: 12/17/15 Urine E. coli ESBL+ (MDRO) 12/18/2015 016 Insurance [facility] Advance Directives For more information, please contact: [phone] * Full Code (Latest Code Status on File) Date Activated Date Inactivated Comments 09/16/2021 11:43 AM 09/16/2021 6:47 PM * Full Code Date Activated Date Inactivated Comments 05/16/2021 4:58 AM 05/16/2021 10:42 PM * Full Code Date Activated Date Inactivated Comments 05/23/2020 9:56 AM 05/23/2020 4:31 PM Care Teams Security Guard Dispatcher Relationship Specialty Start Date End Date Lenin Posadas DO [address] [place] [address] PCP - General Family Medicine 01/04/25 Gaston Chowdhury MD Surgeon Orthopedic Surgery 09/16/21
[2025-01-10 14:48] LABS: Basophils Absolute Auto 0.08 K/mm3 (0.00-0.10); Eosinophils Percent Auto 3.8 % (1.0-6.0); Hematocrit 44.7 % (35.0-49.0); Immature Granulocyte Absolute 0.03 K/mm3 (0.00-0.00); Immature Granulocyte Percent A 0.4 % (0.0-0.0); Lymphocytes Absolute Auto 2.01 K/mm3 (1.10-4.50); Lymphocytes Percent Auto 25.3 % (18.0-42.0); Mean Corpuscular HGB Conc 31.3 g/dL (32-36); Mean Corpuscular Hemoglobin 25.9 pg (27.0-31.0); Mean Corpuscular Volume 82.8 fL (78.0-102.0); Mean Platelet Volume 9.8 fl (9.2-11.8); Monocytes Absolute Auto 0.67 K/mm3 (0.10-0.90); Monocytes Percent Auto 8.4 % (2.0-11.0); Neutrophils Absolute Auto 4.85 K/mm3 (1.70-7.20); Neutrophils Percent Auto 61.1 % (50.0-70.0); Platelet Count Result 282 K/mm3 (150-420); White Blood Count 7.9 K/mm3 (4.8-10.8)
[2025-01-10 15:13] LABS: Alanine Aminotransferase 27 U/L (6-35); Albumin Level 3.5 g/dL (3.5-5.1); Alkaline Phosphatase 129 U/L (38-126); Anion Gap 6 mmol/L (4-12); Aspartate Amino Transferase 38 U/L (14-36); Bilirubin,Total 1.2 mg/dL (0.2-1.3); Blood Urea Nitrogen 21 mg/dL (7-17); Calcium 8.4 mg/dL (8.4-10.2); Carbon Dioxide 24 mmol/L (22-30); Chloride 108 mmol/L (98-107); Estimated Glomerular Filt Rate 56; Glucose 96 mg/dL (65-110); Osmolality Calculated 289 mOsm/kg (285-295); Sodium 138 mmol/L (137-145); Total Protein 6.5 g/dL (6.3-8.2)
[2025-01-10 15:25] LABS: NT Pro B Type Natriuretic Pept 3560 pg/mL (19.9-100); Troponin I 0.016 ng/mL (0.000-0.034)
== END 2025-01-10 14:30 | disposition home or self-care (01) ==
PROVIDERS: PCP Family Medicine; Visit Provider Family Medicine
DX: I50.20 Unspecified systolic (congestive) heart failure (principal)
CPT/HCPCS: 36415; 80053; 83880; 84484; 85025

== ENCOUNTER 2025-02-12 19:02 | Emergency (ER) | payer OTHER, SELFPAY ==
[2025-02-12 19:02] VITALS: BP 113/81; PULSE 101; RESP 18; TEMP 36.3; O2SAT 100
--- NOTE | 2025-02-12 19:10 | ED.WOUNDLAC ---
HPI - Wound/Laceration General Chief Complaint: Wound/Laceration Stated Complaint: Skin issues Time Seen by Provider: 02/12/25 19:10 Source: patient Mode of arrival: ambulatory Limitations: no limitations History of Present Illness HPI narrative: Patient is a 54-year-old female with right lower extremity worsening edema and redness after she hit the lower leg onto a piece of plastic in the past week. The area was open and draining. No fever or chills. She has chronic lower extremity edema from CHF. Onset (ago): day(s) ( Two) Location: other ( right lower extremity) Place: home Patient tetanus UTD: Yes Context: accidental Associated symptoms: none Treatments prior to arrival: bandage Related Data Home Medications ?Medication ?Instructions ?Recorded ?Confirmed ?Last Taken ?Type calcium citrate 500 mg (2,376 mg) 500 mg PO TID 03/01/24 11/11/24 Unknown History effervescent tablet multivitamin 1 tablet PO DAILY 03/01/24 11/11/24 Unknown History ferrous sulfate 325 mg (65 mg 325 mg PO DAILY 11/11/24 11/11/24 Unknown History iron) tablet Allergies Allergy/AdvReac Type Severity Reaction Status Date / Time latex Allergy Unknown ITCHING Verified 11/11/24 14:20 WITH GLOVES adhesive AdvReac Unknown ITCHING Verified 11/11/24 14:20 Review of Systems Review of Systems: All systems reviewed & are unremarkable except as noted in HPI and below Constitutional: Constitutional: Reports no additional constitutional complaints Eyes: Eyes: Reports no additional eye complaints ENT: Reports system reviewed and no additional complaints, except as documented Cardiovascular: Cardiovascular: Reports no additional cardiovascular complaints Respiratory: Respiratory: Reports no additional respiratory complaints Gastrointestinal: Gastrointestinal: Reports no additional gastrointestinal complaints Genitourinary: Genitourinary: Reports no additional female genitourinary complaints Musculoskeletal: Musculoskeletal: Reports no additional musculoskeletal complaints Integumentary/Breasts: Skin/Breast: Reports system reviewed and no additional complaints, except as docu Neurologic: Reports system reviewed and no additional complaints, except as documented Psychiatric: Psychiatric: Reports no additional psychiatric complaints Endocrine: Endocrine: Reports no additional endocrine complaints Hematologic/Lymphatic: Hematologic/Lymphatic: Reports no additional hematologic/lymphatic complaints Allergic/Immunologic: Allergic/Immunologic: Reports no additional allergic/immunologic complaints PMFSH Past Medical History Medical History Methamphetamine use Depression Anxiety Hyperlipidemia Dysphagia Surgical History Surgical History History of tubal ligation 1993 History of spinal fusion 2018. L4/5, S1 History of lumpectomy 1988. Per patient was benign. History of knee replacement 2021 with revision in 2022 H/O gastric bypass November 2011 Family History Family History Mother Asthma Heart disease Father Heart disease Sibling ALS (amyotrophic lateral sclerosis) Grandparent Diabetes mellitus Cancer Grandparent Diabetes mellitus Cancer Grandparent Heart disease Social History Social History Social History: Lives with , son and sons girl friend One dog in the home Smoking status: Never smoker Second hand tobacco smoke exposure: No Alcohol intake: never Alcohol use details: Social drinking every few years Substance use: former Substance use type: does not use and methamphetamine Other substance usage details: Patient reports smoking methamphetamine 3 times. Last use: 2013 Do You Feel Safe in your Home?: Yes Lack of Transportation: YES Lack of Food: Never True Current Housing: I Have Housing Concerned About Future Housing: No Difficulty Paying Gas/Electric Bills: YES Difficulty Paying for Meds: No Currently Unemployed: No Education: Grade School Difficulty w/ Childcare or Family Care: No Living arrangements: with family Additional living arrangements comments: Lives with , son and sons girlfriend Spiritual care concerns: No Exam Const: General: healthy appearing Nutritional Appearance: well nourished Orientation/consciousness: patient oriented x3 Limitations: no limitations HENMT: Head: normal to inspection Ears: external ears normal Face/Nose/Sinus: Normal external nose present Eyes: Conjunctivae: conjunctivae normal Pupils: Equal, round and reactive pupils present EOM: EOMs intact bilaterally Neck: Neck: normal visual inspection Chest: Chest palpation & inspection: normal inspection of the chest Resp: Effort & Inspection: normal respiratory effort and not labored Auscultation: clear to auscultation bilaterally and no crackles Cardio: Rate: regular rate Rhythm: regular rhythm Heart sounds: no murmurs GI: Inspection: non-distended GI Palp: Yes Soft to palpation and No Tenderness to palpation present (GI) Auscultation: normal bowel sounds Back/Spine/Pelvis: Back: no CVA tenderness Skin: General skin exam: No normal color Rashes: no rashes Wounds: wound noted Other: right lower extremity has 4+ pitting edema which is normally about 3+ pitting edema compared to the left which is at baseline; the right lower extremity has a midline shaft area anteriorly small opening with serous fluid and another one to its right with recent closure; area is not circumferential; area is tender Neuro: General: patient oriented x3, moves all extremities, no meningeal signs, no focal motor deficits and CN's II-XI intact bilaterally Extrem: General: normal to inspection Psych: Mental Status: mental status grossly normal Affect: normal affect Attitude: cooperative Course Vital Signs Vital signs: Vital Signs Temperature 36.3 C L 02/12/25 19:02 Pulse Rate 101 H 02/12/25 19:02 Respiratory Rate 18 02/12/25 19:02 Blood Pressure 113/81 02/12/25 19:02 Pulse Oximetry 100 02/12/25 19:02 Oxygen Delivery Room Air 02/12/25 19:02 Temperature 36.3 C L 02/12/25 19:02 Pulse Rate 101 H 02/12/25 19:02 Respiratory Rate 18 02/12/25 19:02 Blood Pressure 113/81 02/12/25 19:02 Pulse Oximetry 100 02/12/25 19:02 Oxygen Delivery Room Air 02/12/25 19:02 MDM - Wound/Laceration MDM Narrative Medical decision making narrative: patient is a 54-year-old female with right lower extremity swelling and redness. We will do Rocephin IM. Tetanus up-to-date. We will do Bactrim at discharge med p.o.. [place] p.r.n.. Discharge Plan Discharge Clinical Impression: Cellulitis Qualifiers: Site of cellulitis: extremity Site of cellulitis of extremity: lower extremity Laterality: right Qualified Code(s): L03.115 - Cellulitis of right lower limb Patient Disposition: Home Condition: Stable Instructions: Antibiotic Form, Cellulitis (ED) Patient Language: Bulgarian Prescriptions: New sulfamethoxazole-trimethoprim [Bactrim DS] 800-160 mg tablet 1 tablet PO BID 10 Days Qty: 20 0RF hydrocodone-acetaminophen 5-325 mg tablet 1 tablet PO Q8H PRN (Reason: pain) Qty: 20 0RF No Action ferrous sulfate 325 mg (65 mg iron) tablet 325 mg PO DAILY losartan [Cozaar] 25 mg tablet 25 mg PO DAILY Qty: 90 0RF spironolactone [Aldactone] 25 mg tablet 25 mg PO DAILY Qty: 90 0RF multivitamin Tablet 1 tablet PO DAILY calcium citrate 500 mg Tablet, Effervescent 500 mg PO TID fluoxetine 40 mg capsule 40 mg PO DAILY Qty: 90 0RF torsemide 20 mg tablet 20 mg PO QAM Qty: 90 0RF Follow-up/Referrals: Lenin Posadas DO [Primary Care Provider] - Time of Disposition: 19:33
[2025-02-12] MEDS: HYDROcodone/acetaminophen (*CRX) 5-325 MG TABLET 1 TAB PO (19:38)
[2025-02-12] MEDS: cefTRIAXone 1 GM, LIDOCAINE 1% LOCAL INJ 2.1 ML IM (19:41)
[2025-02-12 20:01] VITALS: BP 120/65; PULSE 75; RESP 18; TEMP 36.6; O2SAT 97
== END 2025-02-12 20:01 | disposition home or self-care (01) ==
PROVIDERS: Emergency Provider Emergency Medicine; PCP Family Medicine
DX: L03.115 Cellulitis of right lower limb (principal)
CPT/HCPCS: 96372; 99283; A9270; J0696; J2003